=== PATIENT | female | born 1965 | race Caucasian/White ===

== ENCOUNTER → 2018-06-28 13:23 | Outpatient (CLI) | payer OTHER, SELFPAY ==
--- NOTE | 2018-06-28 13:31 | CI_ITS ---
Cerebrovascular Exam Indications: 433.10 Occlusion/stenosis of carotid artery without cerebral infarction. 785.9 Bruit. IMPRESSIONS 1. The bilateral vertebral arteries are patent with normal antegrade flow. 2. Study suggests less than 20% stenosis involving the right internal carotid artery and the left internal carotid artery. Carotid duplex study. Complete study and Doppler flow study including spectral analysis, color and pan scale imaging. Height: Height: 172.7cm. Height: 68in. Weight: Weight: 96.6kg. Weight: 212.6lb. Body mass index: BMI: 32.4kg/m^2. Body surface area: BSA: 2.18m^2. Location: Vascular laboratory. Patient status: Outpatient. Tables: Arterial flow: + +--------+---------+ Location V sys V ed + +--------+---------+ Right CCA - proximal 121cm/s 31.4cm/s + +--------+---------+ Right CCA - distal 84.9cm/s -21.2cm/s + +--------+---------+ Right ECA 115cm/s --------- + +--------+---------+ Right ICA - proximal 97.4cm/s 28.3cm/s + +--------+---------+ Right ICA - mid 85.6cm/s 25.9cm/s + +--------+---------+ Right ICA - distal 84.9cm/s 31.4cm/s + +--------+---------+ Right vertebral 57.4cm/s --------- + +--------+---------+ Left CCA - proximal 190cm/s 37.7cm/s + +--------+---------+ Left CCA - distal 91.1cm/s 32.2cm/s + +--------+---------+ Left ECA 58.9cm/s --------- + +--------+---------+ Left ICA - proximal 91.9cm/s 35.4cm/s + +--------+---------+ Left ICA - mid 73.9cm/s 22.8cm/s + +--------+---------+ Left ICA - distal 91.1cm/s 36.1cm/s + +--------+---------+ Left vertebral 49.5cm/s --------- + +--------+---------+ Velocity ratios: + + + + + Right, V sys Left, V sys Left, V ed + + + + + Max ICA/dist CCA 1.15 1.01 1.12 + + + + + (Report amended ) Electronically signed by: Marito Torres [id number]
== END ==
PROVIDERS: Family Provider Family Medicine; PCP Nurse Practitioner Family; Visit Provider Nurse Practitioner Family
DX: I65.23 Occlusion and stenosis of bilateral carotid arteries (principal)
CPT/HCPCS: 93880

== ENCOUNTER → 2018-10-28 16:44 | Outpatient (CLI) | payer BC, OTHER, SELFPAY ==
--- NOTE | 2018-10-28 16:49 | MM_ITS ---
MM Dig screening mamm BI w/CAD CAD Screening COMPARISON: Digital mammograms with CAD 02/02/2017 and 08/16/2017 INDICATION: There is no personal or family history of breast cancer TECHNIQUE: Standard CC and MLO images were obtained. R2 CAD reviewed. FINDINGS: Moderate scattered fiber glandular densities are seen in the central portions of both breast. There are mole markers right breast. There is a biopsy clip in each breast there is a stable small nodular density central portion right breast adjacent to the biopsy clip likely a small fibroadenoma. There is no suspicious lesion and there are no suspicious microcalcifications.. IMPRESSION: Stable exam with no suspicious lesion seen BI-RADS Category: 2 Benign Finding(s) RECOMMENDED FOLLOW-UP: 1YR - 1 YEAR FOLLOW-UP (A letter has been sent to the patient regarding results of the study.)
--- NOTE | 2018-10-28 16:54 | XR_ITS ---
XR foot LT min 3V HISTORY: ITS.REASON: PAIN IN LEFT FOOT ORDERING PHYSICIAN: Chela Ferrell PATIENT AGE: 52 years COMPARISON: None FINDINGS: No fracture or dislocation. No lytic or blastic change. There is normal mineralization.. Minimal hypertrophic changes are present dorsally at the navicular, cuneiforms and proximal metatarsals. Minimal osteoarthritic changes are present at the first metatarsophalangeal joint. There is good alignment. IMPRESSION: Mild degenerative change, no acute finding
== END ==
PROVIDERS: PCP Nurse Practitioner Family; Referring Provider Nurse Practitioner Family; Visit Provider Nurse Practitioner Family
DX: Z12.31 Encounter for screening mammogram for malignant neoplasm of breast (principal); M79.672 Pain in left foot
CPT/HCPCS: 73630; 77067

== ENCOUNTER → 2020-04-18 10:51 | Outpatient (CLI) | payer OTHER, SELFPAY ==
--- NOTE | 2020-04-18 10:53 | MM_ITS ---
PROCEDURE: MM DIG SCREENING MAMM BI W/CAD Digital Breast Tomosynthesis Included CLINICAL INDICATION: SCREENING There is no personal or family history of breast cancer. There have been previous biopsies on each breast for benign disease. COMPARISON: MG DMDBAV DIG MAMM-DX GABBY W/AVWS W/CAD from 02/02/2017 MG DMDBAV DIG MAMM-DX GABBY W/AVWS W/CAD from 08/16/2017 MG SCBI MM Dig screening mamm BI w/CAD from 10/28/2018 TECHNIQUE: Standard CC and MLO images and 3D Tomosynthesis was obtained. R2 CAD reviewed. FINDINGS: Mild to moderate scattered fibroglandular densities are seen in the central portions of both breasts. There is a biopsy clip in each breast. There are 3 mole markers right breast and a single mole marker left breast. There is a stable benign-appearing nodular density lower outer quadrant left breast. There is a stable tiny nodular density deep within the right breast medially. There is no new or suspicious lesion and there are no suspicious microcalcifications. IMPRESSION: Fibrofatty parenchyma with no suspicious lesions seen BI-RAD Category: 2 Benign Finding(s) FOLLOW-UP: 1YR 1 Year Follow-up (A letter has been sent to the patient regarding results of the study.) Dictated Dr. Mirza Quintero MD 04/26/2020 07:59 Dr. Mirza Davies MD in [place] 04/26/2020 07:59
== END ==
PROVIDERS: PCP Nurse Practitioner Family; Visit Provider Nurse Practitioner Family
DX: Z12.31 Encounter for screening mammogram for malignant neoplasm of breast (principal)
CPT/HCPCS: 77063; 77067

== ENCOUNTER → 2020-06-12 10:09 | Outpatient (CLI) | payer OTHER, SELFPAY ==
[2020-06-12 11:52] LABS: Coronavirus 19 IgG Antibody Negative (Negative); Coronavirus 19 IgM Antibody Negative (Negative)
== END ==
PROVIDERS: Visit Provider Surgery
DX: Z01.89 Encounter for other specified special examinations (principal)
CPT/HCPCS: 36415; 86328

== ENCOUNTER 2020-06-13 07:23 | Day surgery (SDC) | payer OTHER, SELFPAY ==
[2020-06-11 10:14] VITALS: BMI 33.4
[2020-06-13 07:37] VITALS: BP 146/81; PULSE 55; RESP 18; TEMP 36.3; O2SAT 99
--- NOTE | 2020-06-13 07:45 | P.PN_ITS ---
[facility] Anesthesia Checklist - Patient Identification Patient Identification: Arm Band, Verbal (Name & ) - Structural Data Admitted From: Home Planned Operative Procedure/s: colon Consent for Planned Operative Procedure(s) Verified: Yes Verified Documents: History and Physical - NPO Status Verified Time NPO: 00:00 - Chart Verification Results Verified: CBC, BMP - Additional verifications Patient : No Anesthesia Reactions: No Hx Blood Transfusions: No Blood Transfusion Reaction: No Cephalosporin Allergy: No Previous Colonoscopy: Yes - Cardiovascular Assessment Heart Sounds: S1 & S2 Pulse Strength: Baseline Pulse Rhythm: Regular Peripheral Edema: No - Airway Assessment C-Spine Mobility Assessed: Yes TMJ Mobility Assessed: Yes Dentition: Good Dentition - Neurological Assessment Level of Consciousness: Awake, Alert, Appropriate Hx Seizures: No Numbness or tingling in extremities: No - Anesthesia Plan Anesthesia Risk discussed: Yes Anesthesia Plan: Verified ASA Class: II Anesthesia Type: MAC [facility] History I have reviewed the patient's past medical history: Yes Medical History: Reports:: Heart Murmur, Hyperlipidemia, Hypertension, Pulmonary Embolism Denies:: Cancer, Diabetes Mellitus Type 1, Diabetes Mellitus Type 2, MRSA, Seizures *Have you ever received a pneumonia vaccine?: No *Have you received a flu vaccine this season?: No Other Medical History: Reports: Arthritis Anesthesia experience/problems:: none Other Surgeries: Yes: Colonoscopy, , Tubal Ligation Amputation: No Fractures: No - *Social History Last grade of school completed: High school graduate Smoking Status: Never smoker Alcohol Intake: never Substance Use Type: denies use *Occupational Status:: other *Travel in the last 8 weeks: None Family Hx:: Stroke, Heart Attack, Hypertension, Diabetes
[2020-06-13 07:55] VITALS: O2SAT 99
[2020-06-13 08:27] VITALS: BP 99/54; PULSE 51; RESP 16; TEMP 36.2; O2SAT 98
--- NOTE | 2020-06-13 08:28 | HMH.SCOPE ---
- Procedure: Date: 06/13/20 Patient Date of :: 1965 Procedure Performed:: Colonoscopy with biopsy Indications:: Screening History of polyps Melanosis Performing Provider:: Vernon Castorena MD Referring Provider:: . Sedation:: Monitored anesthesia care Procedure:: After informed consent was obtained the patient was taken to the endoscopy suite. Sedation ensued after the patient was transferred to the left lateral decubitus position. Pulse, blood pressure, and oxygen saturation were monitored throughout the procedure. Digital rectal exam revealed no significant abnormality. The colonoscope was placed in position. The entire colon was evaluated. The colonoscope was carefully removed and the patient was transferred to recovery in stable condition. Please see findings and specimens below for detail. Findings:: Small hemorrhoidal tags Bowel preparation moderate Scattered melanosis Focal colitis at 45 cm Specimens:: Biopsy of focal colitis at 45 cm Recommendations:: Timing of repeat colonoscopy is pending pathology but will likely be around 3 years secondary to persistence of moderate bowel preparation Complications:: No immediate Estimated blood obtained (mL): 1
[2020-06-13 08:37] VITALS: BP 119/79; PULSE 56; RESP 16; TEMP 36.2; O2SAT 100
[2020-06-13 08:47] VITALS: BP 118/73; PULSE 49; RESP 18; TEMP 36.2; O2SAT 100
[2020-06-13 08:58] VITALS: BP 125/76; PULSE 52; RESP 18; TEMP 36.2; O2SAT 100
== END 2020-06-13 08:58 | disposition home or self-care (01) ==
LOC: OUTP 07:24
PROVIDERS: PCP Nurse Practitioner Family; Visit Provider Surgery
PROC: 0DJD8ZZ Inspection of Lower Intestinal Tract, Via Natural or Artificial Opening Endoscopic (ICD-10-PCS; CPT 45380; principal; 2020-06-13 08:30)
DX: Z12.11 Encounter for screening for malignant neoplasm of colon (principal); K63.89 Other specified diseases of intestine; K64.9 Unspecified hemorrhoids; K52.9 Noninfective gastroenteritis and colitis, unspecified; Z86.010 Personal history of colon polyps; E78.5 Hyperlipidemia, unspecified; I10 Essential (primary) hypertension; I26.99 Other pulmonary embolism without acute cor pulmonale; R01.1 Cardiac murmur, unspecified; M19.90 Unspecified osteoarthritis, unspecified site; Z88.0 Allergy status to penicillin; Z79.899 Other long term (current) drug therapy
CPT/HCPCS: 45380

== ENCOUNTER → 2021-01-31 12:05 | Outpatient (CLI) | payer OTHER, SELFPAY ==
--- NOTE | 2021-01-31 12:10 | XR_ITS ---
PROCEDURE: XR CERVICAL SPINE 3V CLINICAL INDICATION: CERVICALGIA COMPARISON: No exams were available for comparison FINDINGS: No acute fractures or listhesis. The C1-2 alignment is unremarkable. Vertebral body heights and alignment are maintained. The C7-T1 is not visualized on the current study. Multilevel degenerative changes with the anterior osteophyte formation and facet joint arthropathy. Minor disc height loss is noted. Prevertebral soft tissues and the visualized lung apices are clear. IMPRESSION: C7-T1 is not visualized, limiting evaluation. Degenerative changes of the cervical spine. No acute fractures or listhesis. Dictated by: Valentina May 01/31/2021 12:29 Valentina May in [place] 01/31/2021 12:29
== END ==
PROVIDERS: PCP Nurse Practitioner Family; Visit Provider Nurse Practitioner Family
DX: M54.2 Cervicalgia (principal)
CPT/HCPCS: 72040

== ENCOUNTER 2021-03-11 13:00 | Outpatient (RCR) | payer OTHER, SELFPAY | END 2021-03-31 15:00 | disposition home or self-care (01) | LOC: PT.CARL 13:00 | PROVIDERS: Visit Provider Nurse Practitioner Family | DX: M54.2 Cervicalgia (principal) | CPT/HCPCS: 97012; 97110; 97140; 97163 ==

== ENCOUNTER → 2021-03-19 09:37 | Outpatient (CLI) | payer OTHER, SELFPAY ==
--- NOTE | 2021-03-19 09:40 | MR_ITS ---
PROCEDURE: MR CERVICAL SPINE WO CON CLINICAL INDICATION: CERVICAL DISC DISORDER Rt arm numbness and tingling. Symptoms u2tcutiz. Headache. COMPARISON: CR XR CERVICAL SPINE 3V from 01/31/2021 TECHNIQUE: Standard multiplanar multiecho sequences are performed without contrast. 3-D MIP and myelographic images are also rendered and reviewed FINDINGS: There is normal alignment. The craniocervical junction has an unremarkable appearance. There is straightening of the cervical lordosis. C2-C3: Unremarkable. C3-C4: Unremarkable. C4-C5: Mild degenerative disc disease with minimal bulging disc. Mild right-sided foraminal narrowing from uncovertebral hypertrophy. There is canal stenosis at this level measuring 8 mm with minimal contour deformity of the anterior aspect of the cord. Prominent anterior osteophytes. C5-C6: Degenerative disc disease with mild bulging disc and endplate osteophytes resulting in a small ridge like area anteriorly with canal stenosis of 8 mm. C6-C7: Degenerative disc disease with endplate osteophytes with bulging disc slightly eccentric toward the right with canal stenosis of 7 mm, right lateral recess narrowing, and right foraminal narrowing. There is mild compression upon the anterior and right aspect of the cord. C7-T1: Unremarkable. No extruded herniated discs apparent. IMPRESSION: Multilevel cervical spondylosis with degenerative disc disease, bulging disc, and endplate osteophytes resulting in canal stenosis, lateral recess narrowing, and foraminal narrowing. Please see above for detailed description at each level. Dictated by: Marito Torres MD 03/20/2021 08:38 Marito Torres MD in [place] 03/20/2021 08:38
== END ==
PROVIDERS: PCP Nurse Practitioner Family; Visit Provider Nurse Practitioner Family
DX: M50.10 Cervical disc disorder with radiculopathy, unspecified cervical region (principal)
CPT/HCPCS: 72141; 76376

== ENCOUNTER → 2021-04-10 17:52 | Outpatient (CLI) | payer OTHER, SELFPAY ==
--- NOTE | 2021-04-10 17:58 | XR_ITS ---
PROCEDURE: XR CHEST 2V CLINICAL HISTORY: COUGH COMPARISON: CR CXR CHEST(2 VIEWS-NOT PORTABLE) from 01/18/2017 CT CTAC CTA-CHEST from 01/18/2017 FINDINGS: The cardiomediastinal silhouette and pulmonary vascularity are within normal limits. The lungs are clear without infiltrates, suspicious nodules, or pleural effusions. No acute bony abnormalities. IMPRESSION: No acute findings. Dictated by: Valentina Mya 04/11/2021 08:34 Valentina May in [place] 04/11/2021 08:34
== END ==
PROVIDERS: PCP Nurse Practitioner Family; Visit Provider Nurse Practitioner Family
DX: R05 Cough (principal)
CPT/HCPCS: 71046

== ENCOUNTER → 2021-04-21 09:45 | Outpatient (CLI) | payer OTHER, SELFPAY ==
--- NOTE | 2021-04-21 09:47 | MM_ITS ---
PROCEDURE INFORMATION: Exam: MG Screening 3D Mammography Exam date and time: 04/21/2021 9:47 AM Age: 55 years old Clinical indication: Encounter for screening mammogram for malignant neoplasm of breast TECHNIQUE: Imaging protocol: Screening tomosynthesis and 2D mammography including computer-aided detection (CAD) when performed. COMPARISON: 1. MG MM DIG SCREENING MAMM BI W/CAD 04/18/2020 11:01 AM 2. MG SCBI MM Dig screening mamm BI w/CAD 10/28/2018 4:56 PM FINDINGS: MAMMOGRAPHY: Breast composition: The breast tissue is composed of scattered areas of fibroglandular density. Mass: None. Architectural distortion: None. Calcifications: No suspicious calcifications. Asymmetric density: None. Skin thickening: None. Axillary adenopathy: None. IMPRESSION: No mammographic evidence of malignancy. Annual screening is recommended unless otherwise clinically indicated. ASSESSMENT: BI-RADS Category 1: Negative
== END ==
PROVIDERS: PCP Nurse Practitioner Family; Visit Provider Nurse Practitioner Family
DX: Z12.31 Encounter for screening mammogram for malignant neoplasm of breast (principal)
CPT/HCPCS: 77063; 77067

== ENCOUNTER → 2021-05-07 15:02 | Outpatient (CLI) | payer OTHER, SELFPAY ==
--- NOTE | 2021-05-07 15:11 | XR_ITS ---
PROCEDURE: XR KNEE LT 3V CLINICAL INDICATION: LT KNEE PAIN COMPARISON: CR KNEE3R KNEE-3 VIEWS-RT from 01/01/2016 CR KNEE3L KNEE-3 VIEWS-LT from 01/01/2016 FINDINGS: There are moderate to severe osteoarthritic changes of the medial compartment and patellofemoral joint. Prominent osteophytes are present medially and at the patellofemoral joint and to lesser degree laterally. There is mild flattening of the medial femoral condyle and lateral tibial plateau. Knee joint effusion is suspected. IMPRESSION: Moderate to severe osteoarthritis with knee joint effusion. The osteoarthritis has progressed compared to the previous exam Dictated by: Marito Torres MD 05/07/2021 15:29 Marito Torres MD in [place] 05/07/2021 15:29
== END ==
PROVIDERS: PCP Nurse Practitioner Family; Visit Provider Nurse Practitioner Family
DX: M25.562 Pain in left knee (principal)
CPT/HCPCS: 73562

== ENCOUNTER 2022-01-29 13:00 | Outpatient (RCR) | payer OTHER, SELFPAY | END 2022-03-11 16:43 | disposition home or self-care (01) | LOC: PT.CARL 13:00 | PROVIDERS: PCP Nurse Practitioner Family; Visit Provider Orthopaedic Surgery Adult Reconstructive Orthopaedic Surgery | DX: M17.12 Unilateral primary osteoarthritis, left knee (principal); Z96.652 Presence of left artificial knee joint | CPT/HCPCS: 97010; 97014; 97033; 97110; 97116; 97140; 97163; 97164; 97530; G0283 ==

== ENCOUNTER → 2022-05-04 16:45 | Outpatient (CLI) | payer OTHER, SELFPAY ==
--- NOTE | 2022-05-04 16:49 | MM_ITS ---
PROCEDURE INFORMATION: Exam: MG Bilateral Screening 3D Mammography Exam date and time: 05/04/2022 4:41 PM Age: 56 years old Clinical indication: Screening mammogram TECHNIQUE: Imaging protocol: Bilateral Screening tomosynthesis and 2D mammography including computer-aided detection (CAD) when performed. COMPARISON: 1. MG MM DIG SCREENING MAMM BI W/CAD 04/21/2021 10:01 AM 2. MG MM DIG SCREENING MAMM BI W/CAD 04/18/2020 11:01 AM 3. MG SCBI MM Dig screening mamm BI w/CAD 10/28/2018 4:56 PM 4. MG DMDBAV DIG MAMM-DX GABBY W/AVWS W/CAD 08/16/2017 1:10 PM FINDINGS: MAMMOGRAPHY: Breast composition: There are scattered areas of fibroglandular density. Mass: Stable benign-appearing subcentimeter nodules are present in the bilateral breasts. No new or morphologically suspicious nodule has developed to suggest malignancy. Architectural distortion: No new or suspicious architectural distortion. Calcifications: No new or suspicious calcifications are present Asymmetric density: No new or suspicious asymmetric density is present Skin thickening: None. Axillary adenopathy: None. IMPRESSION: No mammographic evidence of malignancy. Recommend annual screening mammography unless otherwise clinically indicated. ASSESSMENT: BI-RADS category 2: Benign
== END ==
PROVIDERS: PCP Nurse Practitioner Family; Visit Provider Nurse Practitioner Family
DX: Z12.31 Encounter for screening mammogram for malignant neoplasm of breast (principal)
CPT/HCPCS: 77063; 77067

== ENCOUNTER 2023-02-23 09:00 | Outpatient (RCR) | payer OTHER, SELFPAY | END 2023-02-23 14:22 | disposition home or self-care (01) | LOC: PT 09:00 | PROVIDERS: PCP Nurse Practitioner Family; Visit Provider Nurse Practitioner Family | DX: M54.31 Sciatica, right side (principal); M54.50 Low back pain, unspecified | CPT/HCPCS: 97010; 97012; 97014; 97110; 97140; 97163; G0283 ==

== ENCOUNTER 2024-05-03 07:50 | Outpatient (CLI) | payer OTHER, SELFPAY ==
--- NOTE | 2024-05-03 07:52 | US_ITS ---
PROCEDURE: US TRANSVAGINAL CLINICAL INDICATION: PELVIC PAIN COMPARISON: No exams were available for comparison FINDINGS: Transvaginal sonographic images of the pelvis were obtained. UTERUS: 7.5 cm x 4.2cmx 2.7 cm anteverted with a combined endometrial thickness of 4.3mm. There appears to be a polyp within the endometrial cavity that measures 6.8 mm. There is fluid within the endometrium. There is an anterior fibroid measuring 0.7 cm x 0.5 cm x 0.5 cm. LEFT OVARY: 1.4cmx1.4cmx0.7cm with a volume of 0.7ml. RIGHT OVARY: 1.5 cmx 0.9 cmx 0.8 cm with a volume of 0.5ml. Both ovaries are seen and appear normal. Doppler flow to both ovaries are seen. There is no fluid in the cul-de-sac. IMPRESSION: 1. Anteverted uterus normal in shape and size. The endometrium is thin. 2. There appears to be a 6.8 mm polyp within the endometrial cavity. 3. There is fluid within the endometrial cavity. 4. Both ovaries are seen and appear atrophic. 5. No fluid in the cul-de-sac 6. Suggest a gynecology consult for polypectomy. Dictated by: Rudy Mata MD 05/03/2024 13:44 Rudy Mata MD in [place] 05/03/2024 13:44
== END 2024-05-03 23:59 | disposition home or self-care (01) ==
LOC: RAD 07:51
PROVIDERS: PCP Nurse Practitioner Family; Visit Provider Nurse Practitioner Family
DX: R10.2 Pelvic and perineal pain (principal)
CPT/HCPCS: 76830

== ENCOUNTER 2024-10-28 10:49 | Emergency (ER) | payer OTHER, SELFPAY ==
[2024-10-28 11:46] VITALS: BP 120/65; PULSE 87; RESP 18; TEMP 37; O2SAT 98; BMI 35.4
[2024-10-28 11:50] LABS: UTC Influenza A Antigen Negative (Negative); UTC Influenza B Antigen Negative (Negative)
--- NOTE | 2024-10-28 11:59 | ED_ITS ---
Discharge Plan Disposition Patient Disposition: Home, Self-Care Condition: Good Prescriptions Prescriptions: No Action citalopram 40 mg tablet 40 mg PO DAILY lisinopril-hydrochlorothiazide 10-12.5 mg tablet 1 tab PO DAILY fluticasone propionate 50 mcg/actuation spray,suspension intranasal fexofenadine 180 mg tablet PO rosuvastatin 5 mg tablet PO Patient Comments: TAKE ONE TABLET BY MOUTH ONCE DAILY Referrals Follow up/Referrals: Chela Ferrell [Primary Care Provider] - See instructions Activity Restrictions/Add. Instructions Additional Instructions/Restrictions: No sign of a bacterial infection. Likely viral. Viruses can take 7-14 days to run their course. Nasal saline and bulb syringe or nose Sandi to remove nasal drainage to help with nasal congestion. Hard to eat, drink, sleep with nasal congestion so important to keep this cleaned out. Monitor temp. Tylenol or Motrin as needed for pain or fever Encourage fluids, water, Gatorade, Powerade, Pedialyte if infant/toddler/child Warm salt water gargles Warm fluids Sore throat lozenges Sleep elevated Humidifier/vaporizer Follow-up immediately for new or worsening symptoms or no noticeable improvement over the next 48-72 hours. Clinical Impressions Clinical Impression: Upper respiratory infection, viral Instructions Patient Instructions: DI for Viral Upper Respiratory Infection -- Adult Print Language Print Language: Wolof Discharge ED Provider: Aicha ([facility] HPI General Stated complaint: flu ex., chills, cough, poss fever, headaches Mode of Arrival: Ambulatory Source of Information: Patient Time Seen by Provider: 10/28/24 11:52 Description of Symptoms (Recalled from Triage Doc. by RN): FLU S/S , RAMIREZ, COUGH, CHILLS HEENT Symptoms (Recalled from RN notes): Yes Resp Symptoms (Recalled from RN notes): Yes Skin Symptoms (Recalled from RN notes): No MS Symptoms (Recalled from RN notes): No Functional Status (Recalled from RN notes): WNL History of Present Illness Provider Complaint: 58-year-old female presents for complaints of headache, chills, cough, body aches, nasal congestion, and sinus pressure that started yesterday. Patient states she just finished a round of antibiotics for double ear infection. Related Data Home Medications ?Medication ?Instructions ?Recorded ?Confirmed citalopram 40 mg tablet 40 mg PO DAILY dression 05/22/20 06/27/24 lisinopril 10 1 tab PO DAILY bl pressure 05/22/20 06/27/24 mg-hydrochlorothiazide 12.5 mg tablet fexofenadine 180 mg tablet mg PO 06/27/24 06/27/24 fluticasone propionate 50 intranasal 06/27/24 06/27/24 mcg/actuation nasal spray,suspension rosuvastatin 5 mg tablet mg PO 06/27/24 06/27/24 Allergies Allergy/AdvReac Type Severity Reaction Status Date / Time Penicillins (PENICILLINS) Allergy Unknown Verified 06/27/24 13:00 Worker's Comp Is this a Worker's Comp case?: No [facility] Disclaimer: The information contained in this section may have been updated after the patient was seen, as this information can be updated by other users. Medical History , [employer]) Intermittent right lower quadrant abdominal pain Endometrial polyp Surgical History , [employer]GER) Status post section Total knee replacement status Social History , [employer] MANAGER) Smoking Status: Never smoker alcohol intake: never substance use type: denies use current occupational status: other Travel in the last 8 weeks: None caffeine: Yes Have you lived/traveled outside [place] in past 30 days?: No Contact w/someone who lives/traveled outside US past 30 days?: No Exposure to someone with infectious disease in past 14 days?: Yes Do you have a fever (greater than 100.4 F or 38 C)?: No Have you tested positive for COVID-19: No Exposed to someone with COVID-19 in past 14 days?: No Do you have a sore throat?: No Do you have a cough?: Yes Do you have any weakness?: No Do you have any diarrhea?: No Are you experiencing any unusual bleeding?: No Do you have any muscle aches/pain?: No Do you have any abdominal pain?: No Are you experiencing loss of taste or smell?: No ROS Obtained: Yes Systems reviewed as appropriate & no additional complaints except as documented Constitutional Constitutional: Reports system reviewed and no additional complaints, except as documented ENT Ears, Nose, Mouth, and Throat: Reports system reviewed and no additional complaints, except as documented, Reports as per HPI, Reports nasal discharge, Reports nose pain, Reports post nasal drip, Reports sinus pain, Reports sinus pressure and Reports sore throat Respiratory Respiratory: Reports system reviewed and no additional complaints, except as documented and Reports cough Physical Exam General General appearance: alert and in no apparent distress ENT ENT exam: Present normal exam, normal oropharynx, mucous membranes moist and TM's normal bilaterally Respiratory Respiratory exam: Present normal lung sounds bilaterally Cardiovascular Cardiovascular exam: Present regular rate and normal rhythm Neurological Exam Neurological exam: Present alert and oriented X3 Skin Skin exam: Present warm and intact Medical Decision Making Medical Records Medical records reviewed: Yes I reviewed the patient's medical records. Screening: Per USPSTF and CDC recommendations, given the prevalence of disease in our region, it is our hospital?s policy to screen for HIV and viral Hepatitis for all patients aged 18 and over and those with ongoing risk factors. Isaias Inquiry Pt receiving controlled substance: No Isaias was queried for this patient: No Vital Signs: 10/28/24 11:46 Temperature 98.6 F Temperature Source Oral Pulse Rate [Left Radial] 87 Respiratory Rate 18 Blood Pressure [Left Arm] 120/65 Blood Pressure Mean [Left Arm] 83 02 Sat by Pulse Oximetry 98 Lab Data Lab results reviewed: Yes I reviewed the patient's lab results. Lab Results 10/28/24 11:49: Influenza Type A Ag Negative, Influenza Type B Ag Negative
[2024-10-28 12:45] VITALS: BP 120/65; PULSE 87; RESP 18; TEMP 37
[2024-10-28 12:46] LABS: Coronavirus 19, PCR Not Detected (NotDetected); Influenza B, PCR Not Detected (NotDetected)
[2024-10-28 14:20] LABS: Influenza A, PCR Detected (NotDetected)
== END 2024-10-28 12:45 | disposition home or self-care (01) ==
PROVIDERS: Emergency Provider Nurse Practitioner Family; PCP Nurse Practitioner Family
DX: J06.9 Acute upper respiratory infection, unspecified (principal)
CPT/HCPCS: 87636; 87804; 99213; G0381

== ENCOUNTER 2024-12-20 10:19 | Outpatient (CLI) | payer OTHER, SELFPAY ==
--- NOTE | 2024-12-20 10:23 | US_ITS ---
FINAL REPORT TECHNIQUE: Multiple transverse and longitudinal images CLINICAL HISTORY: RUQ PAIN COMPARISON: None FINDINGS: The gallbladder shows no wall thickening, distention or stone disease. No biliary ductal dilatation is appreciated. No fluid collections are seen. Limited portions of the right liver are unremarkable. Limited portions of the right kidney are unremarkable. IMPRESSION: 1. No evidence of cholelithiasis 2. No evidence of biliary obstruction Reviewed, Interpreted and Dictated by Maki Hanson MD Transcribed by Trinidad Morales Authenticated and [facility]
== END 2024-12-20 23:59 | disposition home or self-care (01) ==
LOC: RAD 10:20
PROVIDERS: PCP Nurse Practitioner Family; Visit Provider Nurse Practitioner Family
DX: R10.11 Right upper quadrant pain (principal)
CPT/HCPCS: 76705

== ENCOUNTER 2025-01-02 13:17 | Outpatient (CLI) | payer OTHER, SELFPAY ==
--- NOTE | 2025-01-02 13:22 | CT_ITS ---
FINAL REPORT TECHNIQUE: Thin section axial images were obtained from the thoracic inlet through the upper abdomen after intravenous contrast injection. Reconstruction images were obtained from the axial data. Exam was performed using dose reduction technique. This study was performed with techniques to keep radiation doses as low as reasonably achievable (ALARA). Individualized dose reduction techniques using automated exposure control or adjustment of mA and/or kV according to the patient's size were employed. CLINICAL HISTORY: chest pain COMPARISON: None FINDINGS: There is no mediastinal, hilar, or axillary lymphadenopathy. There is no pleural or pericardial effusion. There is evidence of prior granulomatous disease. There is a subpleural 4 mm nodule in the right upper lobe, best seen on image #31 of series 2. Linear atelectasis is present in the lung bases. Limited evaluation of the upper abdomen is without acute abnormality. No acute osseous abnormality. IMPRESSION: Subpleural 4 mm nodule in the right upper lobe as described. Recommend follow-up after risk stratification according to Fleischner criteria. Reviewed, Interpreted and Dictated by Cinthia Marshall MD Transcribed by Frances Mauricio Authenticated and [facility]
[2025-01-02 14:17] LABS: Blood Urea Nitrogen 22 mg/dl (7-17); Estimated Glomerular Filt Rate 51 ml/min (>60); GFR (African American) 61 ML/MIN (>60)
[2025-01-02] MEDS: IOPAMIDOL-370 (76%);100ML BOTTLE 75 ML IV (14:35)
[2025-01-02] MEDS: SODIUM CHLORIDE 0.9% 10ML SYR (RAD ONLY) 10 ML IV (14:36)
== END 2025-01-02 23:59 | disposition home or self-care (01) ==
LOC: RAD 13:18
PROVIDERS: PCP Nurse Practitioner Family; Visit Provider Nurse Practitioner Family
DX: R07.89 Other chest pain (principal)
CPT/HCPCS: 36415; 71260; 82565; 84520; Q9967

== ENCOUNTER 2025-09-04 08:28 | Day surgery (SDC) | payer OTHER, SELFPAY ==
[2025-09-04] VITALS (14 sets, daily range): BP systolic 112–159; BP diastolic 54–83; PULSE 48–64; RESP 18–20; TEMP 36.1; O2SAT 94–99; BMI 34.7
--- NOTE | 2025-09-04 07:12 | IR_ITS ---
APPROVED REPORT Patient Location: Outpatient PROCEDURES Left heart catheterization Left ventriculogram Selective coronary angiogram Drug-eluting stent deployment to the proximal LAD Intravascular ultrasound to the LAD INDICATION Unstable angina, Coronary artery disease, Complex intervention requiring IVUS guidance, Informed consent was obtained prior to the procedure. COMPLICATIONS NONE Estimated Blood Loss: LESS THAN 10 ML TECHNIQUE One percent lidocaine used to anesthetize the right anterior aspect of the wrist. The right radial artery was accessed via the Seldinger technique. A 6 [place] sheath was placed in the right radial artery. 2.5 mg of Verapamil, 800 mcg of nitroglycerin, 1mg Lidocaine and 5000 U Heparin were given through the arterial sheath. The JL3 catheter was also used to perform left heart catheterization, left ventriculogram and selective coronary angiogram. At the end the diagnostic angiogram therapeutic Was administered given a therapeutic ACT and the guide catheter was placed in left main artery followed by Choice PT extra-support wire placed in the distal LAD. A 4 mm x 15 mm [place] frontier stent was deployed at 14 stalin reducing the stenosis. A 4 mm x 8 mm noncompliant balloon was deployed initially at 18 stalin and then at 20 stalin in the mid and proximal portion of the LAD stent. Intravascular ultrasound probe was then advanced which demonstrated excellent stent apposition and expansion with proximal and distal transition being excellent. MERCY-3 flow was present before and after the procedure. At the end the procedure the apparatus was removed the sheath was removed good hemostasis was achieved using TR banding patient was transferred to the postop boarding in stable condition ANGIOGRAPHIC RESULTS The left main artery Normal The left anterior descending artery Has a proximal 90% stenosis immediately between the large first diagonal artery and first septal personal insurance advisor. The remaining vessel is widely patent The circumflex artery Normal The right coronary artery Dominant normal The APARICIO ventriculogram reveals Normal 65% The left ventricular end-diastolic pressure 25 mmHg IMPRESSION Severe to critical proximal LAD disease as described above Successful stenting of the proximal to mid LAD critical disease reduced to 0% with 1 drug-eluting stent Successful intravascular ultrasound to the LAD Normal ejection fraction Elevated LVEDP PLAN 1. Effient and aspirin 2. LDL less than 55 to be achieved with high intensity statin 3. Avoidance of tobacco products 4. Risk factor modification 5. Cardiac rehabilitation 6. Treatment of elevated LVEDP 7. Recommend sleep study Electronically signed by : Josh Casiano MD 09/04/2025 11:24:46
[2025-09-04 09:03] LABS: Hematocrit 35.5 % (37.0-47.0); Hemoglobin 11.7 g/dL (12.2-16.2); Immature Granulocytes % 0.3 %; Mean Corpuscular HGB Conc 33.0 g/dL (31.8-35.4); Mean Corpuscular Hemoglobin 27.5 pg (27.0-31.2); Mean Corpuscular Volume 83.5 fl (81-99); Nucleated Red Blood Cells % 0 %; Platelet Count 196 K/mm3 (142-424); Red Blood Count 4.25 M/mm3 (4.20-5.40); Red Cell Distribution Width-SD 34.8 fL; White Blood Count 3.6 K/mm3 (4.8-10.8)
[2025-09-04 09:37] LABS: Anion Gap 8.5 mEq/L (5-15); Blood Urea Nitrogen 19 mg/dl (7-17); Calcium 8.6 mg/dl (8.4-10.2); Carbon Dioxide 28 mmol/L (22.0-30.0); Chloride 104 mmol/L (98-107); Creatinine Clearance Estimated 79 mL/min (50-200); Creatinine,Serum 1.20 mg/dl (0.52-1.04); Estimated Glomerular Filt Rate 46 ml/min (>60); GFR (African American) 55 ML/MIN (>60); Glucose 99 mg/dl (74-100); Potassium 3.5 mmoL/L (3.5-5.1); Sodium 137 mmol/L (136-145)
[2025-09-04] MEDS: NITROGLYCERIN 800MCG/8ML SYR (CATH LAB) 800 MCG IA (10:17)
[2025-09-04] MEDS: LIDOCAINE 1% 10ML MDV 10 ML IJ (10:17)
[2025-09-04] MEDS: 0.9 % SODIUM CHLORIDE 500 ML 25 ML IV (10:17)
[2025-09-04] MEDS: HEPARIN 1,000 UNITS/500ML NS (CATH LAB) 3000 UNIT IV (10:18)
[2025-09-04] MEDS: HEPARIN 1,000 UNITS/ML 10ML VIAL (CATH LAB) 5000 UNIT IV ×2 (10:18→11:06)
[2025-09-04] MEDS: VERAPAMIL 2.5MG/ML 2ML VIAL 2.5 MG IV (10:18)
[2025-09-04] MEDS: MIDAZOLAM HCL 1MG/ML 5ML VIAL 1 MG IV (11:16)
[2025-09-04] MEDS: FENTANYL 100MCG/2ML VIAL 50 MCG IV (11:16)
[2025-09-04] MEDS: PRASUGREL 10MG TAB 60 MG PO (11:28)
[2025-09-04 13:33] LABS: CATHL Activated Clotting Time 399 SEC (74-125)
--- NOTE | 2025-09-04 14:55 | SUR.PHASEII ---
No beta neville per MD for HR being to low
== END 2025-09-04 15:13 | disposition home or self-care (01) ==
PROVIDERS: PCP Nurse Practitioner Family; Visit Provider Internal Medicine
PROC: 4A023N7 Measurement of Cardiac Sampling and Pressure, Left Heart, Percutaneous Approach (ICD-10-PCS; CPT 93452; principal; 2025-09-04 08:45)
DX: I25.118 Atherosclerotic heart disease of native coronary artery with other forms of angina pectoris (principal); R53.83 Other fatigue; Z79.02 Long term (current) use of antithrombotics/antiplatelets; Z79.82 Long term (current) use of aspirin; Z79.51 Long term (current) use of inhaled steroids; Z79.899 Other long term (current) drug therapy; Z88.0 Allergy status to penicillin; Z82.49 Family history of ischemic heart disease and other diseases of the circulatory system
CPT/HCPCS: 80048; 85025; 85347; 92928; 92978; 93458; 99152; 99153; C1725; C1769; C1874; C1887; C9600; J1200; J1644; J3010; J7040; Q9967

== ENCOUNTER 2025-09-06 10:40 | Outpatient (CLI) | payer OTHER, SELFPAY ==
[2025-09-06 11:12] LABS: Hematocrit 35.7 % (37.0-47.0); Hemoglobin 11.9 g/dL (12.2-16.2); Immature Granulocytes % 0.5 %; Mean Corpuscular HGB Conc 33.3 g/dL (31.8-35.4); Mean Corpuscular Hemoglobin 28.1 pg (27.0-31.2); Mean Corpuscular Volume 84.4 fl (81-99); Nucleated Red Blood Cells % 0 %; Platelet Count 249 K/mm3 (142-424); Red Blood Count 4.23 M/mm3 (4.20-5.40); Red Cell Distribution Width-SD 35.5 fL; White Blood Count 4.4 K/mm3 (4.8-10.8)
[2025-09-06 11:32] LABS: Anion Gap 8.0 mEq/L (5-15); Blood Urea Nitrogen 17 mg/dl (7-17); Calcium 9.0 mg/dl (8.4-10.2); Carbon Dioxide 30 mmol/L (22.0-30.0); Chloride 103 mmol/L (98-107); Creatinine,Serum 1.20 mg/dl (0.52-1.04); Estimated Glomerular Filt Rate 46 ml/min (>60); GFR (African American) 55 ML/MIN (>60); Glucose 85 mg/dl (74-100); Potassium 4.0 mmoL/L (3.5-5.1); Sodium 137 mmol/L (136-145)
--- OUTSIDE RECORDS SUMMARY | 2025-09-06 12:07 | XMS_ITS | Clinical Summary ---
[facility] Address [address] [place] [address] Care Team Providers Care Dairy Powder Mixer Operator Name Role Phone Jeanine Mancia MD Primary Care Provider [phone] Allergies Active Allergy Reactions Criticality Noted Date Comments Penicillins Rash Low 04/02/2017 Medications citalopram (CeleXA) 20 MG tablet Take 40 mg by mouth Daily. 1 08/08/2019 Active lisinopril-hydro chlorothiazide (PRINZIDE,ZESTOR ETIC) 10-12.5 MG per tablet Take 1 tablet by mouth Every Morning. 1 08/08/2019 Active rosuvastatin (CRESTOR) 5 MG tablet Daily. 07/08/2021 Active acetaminophen (TYLENOL) 650 MG 8 hr tablet Take 1,300 mg by mouth Every 8 (Eight) Hours As Needed for Mild Pain . Active Active Problems Problem Noted Date Diagnosed Date Preoperative clearance 07/17/2021 Family History Medical History Relation Name Comments Heart disease Father Relation Name Status Comments Father Alive Mother Social History Tobacco Use Types Packs/Day Years Used Date Smoking Tobacco: Never Smokeless Tobacco: Never Alcohol Use Standard Drinks/Week Comments Not Currently 0 (1 standard drink = 0.6 oz pur e alcohol) Abuse Screen Answer Date Recorded Unsafe at Home or Work/School Not on file Feels Threatened by Someone? Not on file 07/2023 Does Anyone Keep You from Co ntacting Others or Doint Things Outside the Home? Not on file 06/30/2023 Physical Sign of Abuse Present Not on file 1 Housing Stability Answer Date Recorded Current Living Arrangements Not on file 06/20 Potentially Unsafe Housing Conditions Not on michelle e 06/30/2023 Family and Community Support Answer Reinier e Recorded Help with Day-to-Day Activities Not on file 06/30/2023 Lonely or Isolated Not on file 06/30/2023 Employment Answer Date Recorded Do you want help finding or keeping work or a elvis b? Not on file 06/30/2023 Disabilities Answer Date Recorded Concentrating, Remembering, or Making Decisions Difficulty Not on file 06/30/2023 Doing Errands Independently Difficulty Not on fi le 06/30/2023 Education Answer Date Recorded Help with school or training? Not on file Preferred Language Not on file 06/30/2023 Comments No Sex and Gender Information Value Date Recorded Sex Assigned at Not on file Legal Sex Female 3:02 PM EDT Gender Identity Not on file Sexual Orientation Not on file Last Filed Vital Signs Vital Sign Reading Time Taken Comments Blood Pressure 116/62 07/24/2021 2:30 PM EDT Pulse 63 07/24/2021 2:30 PM EDT Temperature 36.9 C (98.5 F) 08/14/2019 2:51 PM EST Respiratory Rate 16 08/14/2019 2:51 PM EST Oxygen Saturation 99% 07/24/2021 2:30 PM EDT Inhaled Oxygen Concentration - - Weight 104 kg (230 lb) 07/24/2021 2:30 PM EDT Height 172.7 cm (5' 8 ) 07/24/2021 2:30 PM EDT Body Mass Index 34.97 07/24/2021 2:30 PM EDT Plan of Treatment Health Maintenance Due Date Last Done Comments Annual Gynecologic Pelvic and Breast Exam 1965 MAMMOGRAM 2004 COLOGUARD 2009 COLON CANCER SCREENING 5 YEAR SIGMOIDOSCOPY 2009 COLONOSCOPY [address] CAN[address] SCREENING [address] COLONOGRAPHY 2009 FECAL OCCULT BLOOD TEST 2009 FIT Testing (1 year) 2009 Pneumococcal Vaccine 50+ (1 of 1 - PCV) 2014 ZOSTER VACCINE (1 of 2) 2014 ANNUAL PHYSICAL 04/02/2017 HEPATITIS C SCREENING 04/02/2017 INFLUENZA VACCINE 04/20/2025 TDAP/TD VACCINES (2 - Td or Tdap) 05/22/2026 016 Insurance Care Teams Dairy Powder Mixer Operator Relationship Specialty Start Date End Date Jeanine Mancia MD PCP - General Family Medicine 04/02/17
--- OUTSIDE RECORDS SUMMARY | 2025-09-06 12:07 | XMS_ITS | Clinical Summary ---
Author Organization [facility] Address [address] [place] [address] Care Team Providers Care Test Boring Crew Chief Name Role Phone FerrellChela macario [place] HAN Primary Care Provider [phone] Allergies Active Allergy Reactions Criticality Noted Date Comments Penicillins Itching Medium 05/12/2021 Medications lisinopril-hydro CHLOROthiazide 10-12.5 MG tablet Take 1 tablet by mouth 1 (one) time each day in the morning. 02/10/2021 Active citalopram (CeleXA) 40 MG tablet Take 40 mg by mouth 1 (one) time each day. 04/09/2021 Active rosuvastatin (Crestor) 5 MG tablet Take 5 mg by mouth 1 (one) time each day. 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 Immunizations Immunization Administration Dates Next Due Tdap 05/22/2016 Family History Medical History Relation Name Comments Heart attack Father Other cancer Maternal Grandfather Diabetes Other Relation Name Status Comments Father Maternal Grandfather Other Social History Tobacco Use Types Packs/Day Years Used Date Smoking Tobacco: Never Smokeless Tobacco: Never Tobacco Cessation:Counseling Given: Not Answered Alcohol Use Standard Drinks/Week Comments No 0 (1 standard drink = 0.6 oz pur e alcohol) PHQ-2 Answer Date Recorded Patient Health Questionnaire-2 Score 0 05/12/2021 Comments Unknown Sex and Gender Information Value Date Recorded Sex Assigned at Not on file Legal Sex Female 8:50 PM EDT Gender Identity Not on file Sexual Orientation Not on file Last Filed Vital Signs Vital Sign Reading Time Taken Comments Blood Pressure 117/76 05/05/2023 8:48 AM EDT Pulse 51 05/05/2023 8:47 AM EDT Temperature 36.5 C (97.7 F) 05/05/2023 8:47 AM EDT Respiratory Rate 16 05/05/2023 8:47 AM EDT Oxygen Saturation - - Inhaled Oxygen Concentration - - Weight 110 kg (243 lb 2.7 oz) 05/05/2023 8:47 AM EDT Height 170 cm (5' 6.93 ) 05/05/2023 8:47 AM EDT Body Mass Index 38.17 05/05/2023 8:47 AM EDT Plan of Treatment Health Maintenance Due Date Last Done Comments [facility]-HIV Screening 1964 [facility]-Hepatitis C Screening 1964 [facility]-Infant/Child/Adol SDOH Screenings 1964 [facility]- SDOH Screenings 1982 [facility]-Adult SDOH Screenings 1982 [facility]-Pap Smear 1985 [facility]-Cervical Cancer Screening 1994 [facility]-HPV/Cotest 1994 CT Colonography 2009 Colonoscopy 2009 FIT-DNA 2009 FIT 2009 FOBT 2009 Sigmoidoscopy 2009 [facility]-Colorectal Cancer Screening 2009 [facility]-Breast Cancer Screening 2014 [facility]-Pneumococcal Vaccine: 50+ Years (1 of 1 - PCV) 2014 [facility]-Zoster Vaccines (1 of 2) 2014 [facility]-Depression Screening 05/12/2022 05/12/2021 [id number] Vaccine (3 - season) 2025 01/25/2021, 12/31/2020 [facility]-Influenza Vaccine (#1) 05/21/202510/11, 07/09/2021, 10/11/2020, Additional history exists [facility]-DTaP,Tdap,and Td Vaccines (2 - Td or Tdap) 05/22/2026 05/22/2016 [facility]-RSV Vaccine: 60+ Years or (1 - 1-dose 75+ series) 12/25/2039 [facility]-Obesity Intervention Completed 05/05/2023 HPV Vaccines (No Doses Required) Completed [facility]-HIB Vaccines Aged Out No longer e ligible based on patient's age to complete this topic [facility]-Hepatitis A Vaccines Aged Out No longer eligible based on patient's age to complete this topic [facility]-IPV Vaccines Aged Out No longer e ligible based on patient's age to complete this topic [facility]-Rotavirus Vaccines Aged Out No lo nger eligible based on patient's age to complete this topic Care Teams Test Boring Crew Chief Relationship Specialty Start Date End Date Chela Ferrell, EMELY [address] [place] [address] PCP - General 01/31/21
== END 2025-09-06 23:59 | disposition home or self-care (01) ==
LOC: LAB 10:41
PROVIDERS: PCP Nurse Practitioner Family; Visit Provider Internal Medicine
DX: I25.10 Atherosclerotic heart disease of native coronary artery without angina pectoris (principal)
CPT/HCPCS: 36415; 80048; 85025

== ENCOUNTER 2025-09-18 07:55 | Outpatient (CLI) | payer OTHER, SELFPAY ==
--- OUTSIDE RECORDS SUMMARY | 2025-09-18 07:56 | XMS_ITS | Clinical Summary ---
[facility] Address [address] [place] [address] Care Team Providers Care Apprentice/Lineman Name Role Phone Jeanine Mancia MD Primary Care Provider [phone] Allergies Active Allergy Reactions Criticality Noted Date [...] or Tdap) 05/22/2026 016 Insurance Care Teams Apprentice/Lineman Relationship Specialty Start Date End Date Jeanine Mancia MD PCP - General Family Medicine 04/02/17
--- OUTSIDE RECORDS SUMMARY | 2025-09-18 07:56 | XMS_ITS | Data Portability ---
Author Organization [employer] [facility] Address [address] [place] [address] Assessment Encounter Date Assessment Date Assessment LastModified by Organization Details LastModified Time 12/12/2024 12/12/[address] Chest PE protocol and GB US. Waldo diet encouraged. Alarm sx that would necessitate ER visit explained. Not available 12/12/2024 17:37:57 08/13/2025 08/13/2025 Tasia Alexis presented with several months of fatigue despite adequate sleep, numbness in arms/hands, tingling in feet, and two episodes of radiating chest pain. Her history includes splenic aneurysm, hypertension, acid reflux, and mood disorder. Evaluation revealed well-controlled blood pressure (124/56). Management included cardiology referral for chest pain, comprehensive bloodwork for fatigue and numbness, home sleep study for severe snoring, continuation of blood pressure medication and Celexa, resumption of aspirin, and rescheduling of splenic aneurysm follow-up. Not available 08/13/2025 12:38:07 09/12/2025 09/12/2025 Tasia Alexis, a female patient with newly diagnosed cardiac disease, presented for follow-up after LAD stent placement on September 04. She reported improved chest pressure without radiation and mild shortness of breath with exertion. Blood pressure was low at 89/55 mmHg. She was taking Effient, aspirin, and Crestor 5mg (limited by statin intolerance). Management included continuing dual antiplatelet therapy, increasing fluid intake, reducing Dr. Pepper consumption, administering influenza vaccine, and proceeding with scheduled echocardiogram to evaluate decreased ejection fraction. Not available 09/12/2025 12:51:18 Plan of Treatment Reminders Order Date Submit Date Provider Last Modified By Organization Details Last Modified Time Details Appointments None recorded. Lab lipid panel, serum 2024 025 [facility] ([facility]), [address] [place], [address], 5 07:09:06 CBC w/ auto diff [address] [facility] [address] [place], [address], 5 07:09:05 CMP, serum or plasma [address] [facility] [address] [place], [address], 5 07:09:05 TSH + free T4, serum [address] [facility]), [address] [place], [address], 5 07:09:04 cobalamin and folate panel, serum [address] [facility]), [address] [place], [address], 5 07:09:06 magnesium, serum or plasma 2024 025 [facility] [place], [address], 5 07:09:07 vitamin D, 25-hydroxy, total, serum [address] [facility] [address] [place] [address], [address], 5 07:09:07 HbA1c (hemoglobin A1c), blood 2024 025 [facility] [address] [place] [address], [address], 5 07:09:07 CMP, serum or plasma 2024 025 [email or web address] [facility] ([place]), [address] [place], [address], 5 15:22:44 amylase + lipase, serum 2024 025 [email or web address] [facility] ([place]), [address] [place], [address], 5 15:22:45 CBC w/ auto diff 2024 025 [email or web address] [facility] ([place]), [address] [place], [address], 5 15:22:45 D-dimer, quant, plasma 2024 025 [email or web address] [facility] ([place]), [address] [place], [address], 5 15:22:45 Referral cardiologis t referral - HERMES please 2024 [facility], [address], [place], [address], 16:46:07 Procedures None recorded. Surgeries None recorded. Imaging home sleep study 2024 025 [facility], [address] [facility], [facility], [place], [address], 5 04:13:00 XR, chest, 2 view 2024 025 [email or web address] 7 [facility], [address] [place] [address], [address], 5 09:59:21 CT, chest, w/ contrast - first avail, obtain labs at [facility] day of scan for contrast purposes. 2024 [facility] ([facility]), [address], [place], [address], 09:36:15 US, abdomen, limited - RUQ; first available appt; SAME DAY THE CT 2024 [facility] ([facility]), [address], [place], [place], [address], 16:17:22 Medication Orders rosuvastati n 5 mg tablet 2024 [facility], [address] [place] [address], [address], 13:47:08 citalopram 40 mg tablet 2024 [facility], [address] [place] [address], [address], 13:47:06 lisinopril 10 mg-hydrochl orothiazide 12.5 mg tablet 2024 [facility], [address] [place] [address], [address], 13:47:07 ceftriaxone 1 gram solution for injection 2024 [email or web address] Not available 11:02:47 Depo-Medrol 40 mg/mL suspension for injection 2024 [email or web address] Not available 11:02:44 bromphenira mine-pseudo ephedrine-D M 2 mg-30 mg-10 mg/5 mL oral syrup 2024 [facility], [address] [place] [address], [address], 11:30:40 Advair HFA 115 mcg-21 mcg/actuati on aerosol inhaler 2024 025 [facility], [address] [place] [address], [address], 5 11:56:24 azithromyci n 250 mg tablet 2024 025 [facility], [address] [place] [address], [address], 5 08:43:18 prednisone 20 mg tablet 2024 025 [facility], [address] [place] [address], [address], 5 08:38:16 Patient TargetsNo targets recorded. Patient InstructionsNo instructions recorded. Reason for Referral [employer] Aide Referral for Ch est pain HERMES please Referring Physician: Chela Ferrell, Family Medicine, Encounter Date: 08/13/2025 Results Created Date Observation Date Name Description Value Unit Range Abnormal Flag Note LastModifiedBy Organization Detail LastModifiedTime 08/13/2008/14/2025 TSH+F REE T4 TSH 1.670 uIU/m L 0.450- 4.500 normal Not Available [facility] ([facility]) [address] [place], [address], 08/14/2025 07:09:04 08/13/2008/14/2025 TSH+F REE T4 T4,free(dire ct) 1.27 NG/dL 0.82-1 .77 normal Not Available [facility] ([facility]) [address] [place], [address], 08/14/2025 07:09:04 08/13/2008/14/2025 CBC WITH DIFFE RENTI AL/PL ATELE T WBC 3.6 x10e3 /uL 3.4-10 .8 normal Not Available [facility] ([facility]) [address] [place], [address], 08/14/2025 07:09:05 08/13/2008/14/2025 CBC WITH DIFFE RENTI AL/PL ATELE T RBC 4.85 x10e6 /uL 3.77-5 .28 normal Not Available [facility] ([facility]) [address] [place], [address], 08/14/2025 07:09:05 08/13/2008/14/2025 CBC WITH DIFFE RENTI AL/PL ATELE T hemoglobin 13.4 g/dL 11.1-1 5.9 normal Not Available [facility] ([facility]) [address] [place], [address], 08/14/2025 07:09:05 08/13/2008/14/2025 CBC WITH DIFFE RENTI AL/PL ATELE T hematocrit 42.5 % 34.0-4 6.6 normal Not Available [facility] ([facility]) [address] [place], [address], 08/14/2025 07:09:05 08/13/2008/14/2025 CBC WITH DIFFE RENTI AL/PL ATELE T MCV 88 fL 79-97 normal Not Available [facility] ([facility]) [address] [place], [address], 08/14/2025 07:09:05 08/13/2008/14/2025 CBC WITH DIFFE RENTI AL/PL ATELE T MCH 27.6 pg 26.6-3 3.0 normal Not Available [facility] ([facility]) [address] [place], [address], 08/14/2025 07:09:05 08/13/2008/14/2025 CBC WITH DIFFE RENTI AL/PL ATELE T MCHC 31.5 g/dL 31.5-3 5.7 normal Not Available [facility] ([facility]) [address] [place], [address], 08/14/2025 07:09:05 08/13/2008/14/2025 CBC WITH DIFFE RENTI AL/PL ATELE T RDW 11.6 % 11.7-1 5.4 below low normal Not Available [facility] ([facility]) [address] [facility], [place], [address], 08/14/2025 07:09:05 08/13/2008/14/2025 CBC WITH DIFFE RENTI AL/PL ATELE T platelets 232 x10e3 /uL 150-45 0 normal Not Available [facility] ([facility]) [address] [facility], [place], [address], 08/14/2025 07:09:05 08/13/2008/14/2025 CBC WITH DIFFE RENTI AL/PL ATELE T neutrophils 52 % not estab. normal Not Available [facility] ([facility]) [address] [facility], [place], [address], 08/14/2025 07:09:05 08/13/2008/14/2025 CBC WITH DIFFE RENTI AL/PL ATELE T lymphs 33 % not estab. normal Not Available [facility] ([facility]) [address] [facility], [place], [address], 08/14/2025 07:09:05 08/13/2008/14/2025 CBC WITH DIFFE RENTI AL/PL ATELE T monocytes 9 % not estab. normal Not Available [facility] ([facility]) [address] [facility], [place], [address], 08/14/2025 07:09:05 08/13/2008/14/2025 CBC WITH DIFFE RENTI AL/PL ATELE T eos 5 % not estab. normal Not Available [facility] ([facility]) [address] [place], [address], 08/14/2025 07:09:05 08/13/2008/14/2025 CBC WITH DIFFE RENTI AL/PL ATELE T basos 1 % not estab. normal Not Available [facility] ([facility]) [address] [place], [address], 08/14/2025 07:09:05 08/13/2008/14/2025 CBC WITH DIFFE RENTI AL/PL ATELE T immature cells RADIATION ONCOLOGY THERAPIST Not Available [facility] ([facility]) [address] [place], [address], 08/14/2025 07:09:05 08/13/2008/14/2025 CBC WITH DIFFE RENTI AL/PL ATELE T neutrophils (absolute) 1.8 x10e3 /uL 1.4-7. 0 normal Not Available [facility] ([facility]) [address] [place], [address], 08/14/2025 07:09:05 08/13/2008/14/2025 CBC WITH DIFFE RENTI AL/PL ATELE T lymphs (absolute) 1.2 x10e3 /uL 0.7-3. 1 normal Not Available [facility] ([facility]) [address] [place], [address], 08/14/2025 07:09:05 08/13/2008/14/2025 CBC WITH DIFFE RENTI AL/PL ATELE T monocytes(ab solute) 0.3 x10e3 /uL 0.1-0. 9 normal Not Available [facility] ([facility]) [address] [place], [address], 08/14/2025 07:09:05 08/13/2008/14/2025 CBC WITH DIFFE RENTI AL/PL ATELE T eos (absolute) 0.2 x10e3 /uL 0.0-0. 4 normal Not Available [facility] ([facility]) [address] [place], [address], 08/14/2025 07:09:05 08/13/2008/14/2025 CBC WITH DIFFE RENTI AL/PL ATELE T baso (absolute) 0.0 x10e3 /uL 0.0-0. 2 normal Not Available [facility] ([facility]) [address] [facility], [place], [address], 08/14/2025 07:09:05 08/13/2008/14/2025 CBC WITH DIFFE RENTI AL/PL ATELE T immature granulocytes 0 % not estab. Not Available [facility] ([facility]) [address] [facility], [place], [address], 08/14/2025 07:09:05 08/13/2008/14/2025 CBC WITH DIFFE RENTI AL/PL ATELE T immature grans (abs) 0.0 x10e3 /uL 0.0-0. 1 Not Available [facility] ([facility]) [address] [facility], [place], [address], 08/14/2025 07:09:05 08/13/2008/14/2025 CBC WITH DIFFE RENTI AL/PL ATELE T NRBC RADIATION ONCOLOGY THERAPIST Not Available [facility] ([facility]) [address] [facility], [place], [address], 08/14/2025 07:09:05 08/13/2008/14/2025 CBC WITH DIFFE RENTI AL/PL ATELE T hematology comments: RADIATION ONCOLOGY THERAPIST Not Available [facility] ([facility]) [address] [facility], [place], [address], 08/14/2025 07:09:05 08/13/2008/14/2025 COMP. METAB OLIC PANEL (14) glucose 88 mg/dL 70-99 normal Not Available [facility] ([facility]) [address] [place], [address], 08/14/2025 07:09:05 08/13/2008/14/2025 COMP. METAB OLIC PANEL (14) BUN 19 mg/dL 8-27 normal Not Available [facility] ([facility]) [address] [facility] [place], [address], 08/14/2025 07:09:05 08/13/2008/14/2025 COMP. METAB OLIC PANEL (14) creatinine 1.08 mg/dL 0.57-1 .00 above high normal Not Available [facility] ([facility]) [address] [facility] [place], [address], 08/14/2025 07:09:05 08/13/2008/14/2025 COMP. METAB OLIC PANEL (14) eGFR 59 mL/mi n/1.7 3 >59 below low normal Not Available [facility] ([facility]) [address] [facility] [place], [address], 08/14/2025 07:09:05 08/13/2008/14/2025 COMP. METAB OLIC PANEL (14) BUN/creatini ne ratio 18 12-28 normal Not Available [facility] ([facility]) [address] [facility] [place], [address], 08/14/2025 07:09:05 08/13/20 25 08/14/2025 COMP. METAB OLIC PANEL (14) sodium 138 mmol/ L 134-14 4 normal Not Available [facility] ([facility]) [address] [place], [address], 08/14/2025 07:09:05 08/13/2008/14/2025 COMP. METAB OLIC PANEL (14) potassium 4.5 mmol/ L 3.5-5. 2 normal Not Available [facility] ([facility]) [address] [facility] [place], [address], 08/14/2025 07:09:05 08/13/2008/14/2025 COMP. METAB OLIC PANEL (14) chloride 99 mmol/ L 96-106 normal Not Available [facility] ([facility]) [address] [facility] [place], [address], 08/14/2025 07:09:05 08/13/2008/14/2025 COMP. METAB OLIC PANEL (14) carbon dioxide, total 25 mmol/ L 20-29 normal Not Available [facility] ([facility]) [address] [facility] [place], [address], 08/14/2025 07:09:05 08/13/2008/14/2025 COMP. METAB OLIC PANEL (14) calcium 9.4 mg/dL 8.7-10 .3 normal Not Available [facility] ([facility]) [address] [facility] [place], [address], 08/14/2025 07:09:05 08/13/2008/14/2025 COMP. METAB OLIC PANEL (14) protein, total 6.6 g/dL 6.0-8. 5 normal Not Available [facility] ([facility]) [address] [facility] [place], [address], 08/14/2025 07:09:05 08/13/2008/14/2025 COMP. METAB OLIC PANEL (14) albumin 4.3 g/dL 3.8-4. 9 normal Not Available [facility] ([facility]) [address] [facility] [place], [address], 08/14/2025 07:09:05 08/13/2008/14/2025 COMP. METAB OLIC PANEL (14) globulin, total 2.3 g/dL 1.5-4. 5 Not Available [facility] ([facility]) [address] [facility] [place], [address], 08/14/2025 07:09:05 08/13/2008/14/2025 COMP. METAB OLIC PANEL (14) bilirubin, total 0.5 mg/dL 0.0-1. 2 normal Not Available [facility] ([facility]) [address] [facility] [place], [address], 08/14/2025 07:09:05 08/13/2008/14/2025 COMP. METAB OLIC PANEL (14) alkaline phosphatase 115 IU/L 49-135 normal Not Available [facility] ([facility]) [address] [facility] [place], [address], 08/14/2025 07:09:05 08/13/2008/14/2025 COMP. METAB OLIC PANEL (14) AST (SGOT) 17 IU/L 0-40 normal Not Available [facility] ([facility]) [address] [facility] [place], [address], 08/14/2025 07:09:05 08/13/2008/14/2025 COMP. METAB OLIC PANEL (14) ALT (SGPT) 14 IU/L 0-32 normal Not Available [facility] ([facility]) [address] [facility] [place], [address], 08/14/2025 07:09:05 08/13/2008/14/2025 LIPID PANEL cholesterol, total 212 mg/dL 100-19 9 above high normal Not Available [facility] ([facility]) [address] [facility] [place], [address], 08/14/2025 07:09:06 08/13/2008/14/2025 LIPID PANEL triglyceride s 91 mg/dL 0-149 normal Not Available [facility] ([facility]) [address] [facility] [place], [address], 08/14/2025 07:09:06 08/13/2008/14/2025 LIPID PANEL HDL cholesterol 61 mg/dL >39 normal Not Available [facility]) [address] [facility] [place], [address], 08/14/2025 07:09:06 08/13/2008/14/2025 LIPID PANEL VLDL cholesterol sydney 16 mg/dL 5-40 Not Available [facility] ([facility]) [address] [place], [address], 08/14/2025 07:09:06 08/13/2008/14/2025 LIPID PANEL LDL chol calc ([facility]) 135 mg/dL 0-99 above high normal Not Available [facility] ([facility]) [address] [facility], [place], [address], 08/14/2025 07:09:06 08/13/2008/14/2025 LIPID PANEL LDL calc comment: RADIATION ONCOLOGY THERAPIST Not Available [facility] ([facility]) [address] [facility], [place], [address], 08/14/2025 07:09:06 08/13/2008/14/2025 VITAM IN B12 AND FOLAT E vitamin B12 379 pg/mL 232-12 45 normal Not Available [facility] ([facility]) [address] [place], [address], 08/14/2025 07:09:06 08/13/2008/14/2025 VITAM IN B12 AND FOLAT E folate (folic acid), serum 3.9 NG/mL >3.0 normal A serum folat e quoc ntrat ion of less than 3.1 ng/mL is consi dered to repre sent clini sydney defic iency . Not Available [facility] ([facility]) [address] [facility], [place], [address], 08/14/2025 07:09:06 08/13/2008/14/2025 HEMOG LOBIN A1C hemoglobin A1C 5.5 % 4.8-5. 6 normal Predi abete s: 5.7 - 6.4 Diabe nelson: >6.4 Glyce kristen contr ol for adult s with diabe nelson: <7.0 Not Available [facility] ([facility]) [address] [facility], [place], [address], 08/14/2025 07:09:07 08/13/20 25 08/14/2025 VITAM IN D, 25-HY DROXY vitamin D, 25-hydroxy 31.6 NG/mL 30.0-1 00.0 Vitam in D defic iency has been defin ed by the Insti tute of Medic ine and an Endoc rine Socie ty pract ice guide line as a level of serum 25-OH vitam in D less than 20 ng/mL (1,2) . The Endoc rine Socie ty went on to [facility] er defin e vitam in D insuf ficie ncy as a level betwe en 21 and 29 ng/mL (2). 1. IOM (Inst itute of Medic ine). 2010. Dieta ry refer ence intak es for calci um and D. Vel de la garza [place]: The [facility] Press . 2. Salvador garibay [place], Yi duckworth [place], Alfreda off-F errar i RAMIREZ, et al. Evalu ation , treat ment, and preve ntion of vitam in D defic iency : an Endoc rine Socie ty clini [place] pract ice guide line. JCEM. 2010; 96(7) :1911 -30. Not Available [facility] ([facility]) [address] [facility], [place], [address], 08/14/2025 07:09:07 08/13/2008/14/2025 MAGNE SIUM magnesium 2.3 mg/dL 1.6-2. 3 normal Not Available [facility] ([facility]) [address] [facility], [place], [address], 08/14/2025 07:09:07 12/21/1912/20/2024 US, abdom en, limit ed No observ ation record ed. [email or web address] [facility] [address], [place], [address], 12/22/2024 08:51:06 01/04/20 25 01/02/2025 CT, chest , w/ contr ast No observ ation record ed. [address], [place], [address], 01/09/2025 09:38:26 01/19/20 25 01/16/2025 XR, knee No observ ation record ed. [address] (Radiology) [address] [place], [address], 01/19/2025 13:36:50 01/19/20 25 01/16/2025 XR, knee No observ ation record ed. [address] (Radiology) [address] [place], [address], 01/19/2025 13:36:30 04/20/20 25 XR, chest , 2 view No observ ation record ed. [address], [address], 05/04/2025 10:35:04 Result Notes None recorded. Problems Name Problem SNOMED Code Status Onset Date Resolution Date Notes Provider Name and Address Organization Details Recorded Time Mixed hyperlip idemia 807916923 Active 2017 Problem Code: E78.2; Problem Code Type: ICD-10; Not Available [facility] 22:26:54 Hyperten sive disorder 56522547 Active 2017 Problem Code: I10; Problem Code Type: ICD-10; Not Available [facility] 2 22:26:54 Polyp of colon 14234125 Completed 201707/27/2022 Problem Code: K63.5; Problem Code Type: ICD-10; [place] [facility]. 10:51:16 Idiopath ic osteoart hritis 010910090 Completed 201709/24/2018 Problem Code: M17.0; Problem Code Type: ICD-10; Not Available [facility] 22:26:55 Body mass index 30+ - obesity 974505606 Completed 201710/14/2020 Problem Code: Z68.33; Problem Code Type: ICD-10; Not Available [facility] 22:26:59 Osteoart hritis of knee 005302511 Completed 201709/24/2018 Not Available [facility] 2 22:27:01 Left carotid artery occlusio n [id number] 9105 Completed 201708/22/2018 Not Available [facility] 2 22:26:54 Precordi al pain 36022703 Completed 201708/22/2018 Problem Code: R07.2; Problem Code Type: ICD-10; Not Available [facility] 22:26:56 Nausea 689100600 Completed 201707/07/2018 Problem Code: R11.0; Problem Code Type: ICD-10; Not Available [facility] 2 22:26:56 Carotid artery occlusio n 684801123 Completed 201708/22/2018 Problem Code: 433.10; Problem Code Type: ICD-9; Not Available [facility] 22:27:00 Vitamin D deficien 27717862 Active 2018 Problem Code: E55.9; Problem Code Type: ICD-10; Not Available [facility] 2 22:26:54 Pain in left foot 62088510135 9107 Completed 201804/12/2019 Problem Code: M79.672; Problem Code Type: ICD-10; Chela Ferrell, EMELY [address] [place] [address], [address] , [employer] 5 17:06:29 Pain in limb 14667604 Completed 201807/27/2022 Problem Code: 729.5; Problem Code Type: ICD-9; CHENCHO avilez, [employer] 2 10:51:16 Screenin g mammogra phy Completed 201811/23/2018 Problem Code: V76.12; Problem Code Type: ICD-9; CHENCHO SANCHEZ null, [employer] 2 10:51:16 Strain of left Achilles tendon [id number] 788036 Completed 201804/12/2019 Not Available [facility] 2 22:26:57 Sprain of distal tibiofib ular ligament 31176454 Completed 201807/27/2022 Problem Code: S93.432A ; Problem Code Type: ICD-10; CHENCHO SANCHEZ null, [employer] 2 10:51:16 Generali zed anxiety disorder 81830063 Active 2018 Problem Code: F41.1; Problem Code Type: ICD-10; Not Available [facility] 2 22:26:56 Injury of Achilles tendon 852633038 Completed 201807/27/2022 Problem Code: S86.001S ; Problem Code Type: ICD-10; CHENCHO SANCHEZ null, [employer] 2 10:51:16 General examinat ion of patient Completed 201907/27/2022 CHENCHO CROOKSR null, [employer] 2 10:51:16 Body mass index 30+ - obesity 941306222 Active 2019 Problem Code: Z68.32; Problem Code Type: ICD-10; Not Available [facility] 2 22:26:59 Benign neoplasm of skin of eyelid 54009778 Completed 201907/27/2022 Problem Code: D23.10; Problem Code Type: ICD-10; CHENCHO CROOKSR null, [employer] 2 10:51:16 Screenin g for malignan t neoplasm of colon Completed 201907/27/2022 CHENCHO CROOKSR null, [employer] 2 10:51:16 Screenin g mammogra phy Completed 201910/14/2020 Problem Code: Z12.31; Problem Code Type: ICD-10; CHENCHO MYNEAR null, [employer] 10:51:16 Influenz a vaccine needed 79797341359 06 Completed 202012/12/2021 Problem Code: Z23; Problem Code Type: ICD-10; Not Available [facility] 22:26:58 Cervical disc disorder with radiculo toney 102929889 Active 2020 Problem Code: M50.10; Problem Code Type: ICD-10; Not Available [facility] 22:26:55 Neck pain 98309664 Completed 202007/27/2022 CHENCHO TREENEAR null, [employer] 10:51:16 Right lateral elbow tendinop athy 52753173732 9107 Completed 202007/27/2022 Problem Code: M77.11; Problem Code Type: ICD-10; CHENCHO TREENEAR null, [employer] 10:51:16 Spinal stenosis in cervical region 12993292 Active 2020 Problem Code: M48.02; Problem Code Type: ICD-10; Not Available [facility] 22:26:55 Cough 39730919 Completed 202012/12/2021 Problem Code: R05; Problem Code Type: ICD-10; Not Available [facility] 22:26:56 Screenin g mammogra phy Completed 202007/27/2022 Problem Code: Z12.31; Problem Code Type: ICD-10; CHENCHO MYNEAR null, [employer] 10:51:16 Pain in left knee Completed 202011/04/2022 Problem Code: M25.562; Problem Code Type: ICD-10; CHENCHO MYNEAR null, [employer] 3 14:26:16 Chronic kidney disease stage 2 920805973 Active 2020 Problem Code: N18.2; Problem Code Type: ICD-10; Not Available [facility] 2 22:26:56 Pre-surg aram evaluati on Completed 202007/27/2022 CHENCHO avilez, [employer] 2 10:51:16 Influenz a vaccine needed [id number] 06 Completed 202012/12/2021 Problem Code: Z23; Problem Code Type: ICD-10; Not Available [facility] 2 22:26:58 Acute sinusiti s 24871546 Completed 202007/27/2022 Problem Code: J01.90; Problem Code Type: ICD-10; Chela Ferrell APRN [address] [place] [address], [phone] , [employer] 5 16:17:04 Cough 43746222 Completed 202012/12/2021 Problem Code: R05; Problem Code Type: ICD-10; Not Available [facility] 2 22:26:56 Pyrexia of unknown origin 8149740 Completed 202007/27/2022 Problem Code: R50.9; Problem Code Type: ICD-10; CHENCHO SANCHEZ null, [employer] 2 10:51:16 Aftercar e Completed 202111/04/2022 CHENCHO TREEJEEVANR null, [employer] 3 14:26:16 Acute serous otitis media of bilatera l ears 21791561705 73619 Completed 202111/04/2022 CHENCHO TREEJEEVANR null, [employer] 3 14:26:16 Acute sinusiti s 54433421 Active 2024 Problem Code: J01.90; Problem Code Type: ICD-10; Chela Ferrell APRN [address] [place], [address] , [employer] 5 16:17:04 Persiste nt cough 143316754 Active 2024 Chela Ferrell APRN [address] [place] [address], [phone] , [employer] 5 08:26:23 Acute lower respirat ory tract infectio n 801637853 Active 2024 Chela Ferrell APRN [address] [place] [address], [address] , [employer] 5 09:00:35 Fatigue 82138079 Active 2024 Chela Ferrell APRN [address] [place] [address], [phone] , [employer] 11:19:43 Paresthe linda 86362586 Active 2024 Chela Ferrell APRN [address] [place] [address], [phone] , [employer] 5 11:20:36 Chest pain 74017042 Active 2024 Chela Ferrell APRN [address] [place] [address], [address] , [employer] 5 11:29:12 Snoring 77063407 Active 2024 Chela Ferrell APRN [address] [place] [address], [address] , [employer] 5 11:29:24 Coronary arterios clerosis 71054392 Active 2024 Chela Ferrell APRN [address] [place] [address], [phone] , [employer] 5 11:18:40 Problem Notes None recorded. Procedures Surgical History Date Name Laterality Status Provider Name and Address Organization Details Recorded Time 09/04/20 25 catheterization of left heart completed Chela Ferrell APRN [address] [place], [address], [employer] 09/04/2025 11:30:52 04/20/20 22 Most Recent Mammogram completed CHENCHO [place] - [facility]. 07/27/2022 10:52:09 12/13/19 22 Total knee arthroplasty completed Not Available [facility] 05/26/2022 22:56:08 06/10/20 18 section completed Not Available [facility] 05/26/2022 22:56:08 06/10/20 18 ligation of bilateral fallopian tubes completed Not Available [facility] 05/26/2022 22:56:08 Imaging Results None recorded. Procedure Notes None recorded. Medical Equipment None Reported. Allergies Allergen ID Allergen Name Allergen Category Reaction Reaction Severity Criticality Documentation Date Start Date Code Code System Note Provider Name and Address Organization Details Recorded Time 66635 Product containin g penicilli n (product) medicatio n Not available Not available Not available 05/26/2022 21613 8001 SNOMED Aller gyCod e: ''; Aller gyNam e: 'Peni cilli ns'; Aller gyCon ceptT ype: ''; Not Available [facility] 22:57:18 Medications Name Sig Start Date Stop Date Status Note LastModified by Organization Details LastModified Time prednisone 10 mg tablet TAKE 6 TABLETS BY MOUTH ON DAY 1, TAKE 5 TABS ON DAY 2 ,TAKE 4 TABS ON DAY 3, TAKE 3 TABS ON DAY 4 , TAKE 2 TABS ON DAY 5, THEN TAKE 1 TAB ON DAY 6 03/10 completed Not Available Not Available Not Available Depo-Medrol 40 mg/mL suspension for injection Take 1 mL by injection route. 08/13 completed Not Available Not Available Not Available clindamycin HCl 300 mg capsule take 1 capsule (300 mg) by oral route 2 times per day for 7 days 10/08 completed Not Available Not Available Not Available citalopram 40 mg tablet Take 1 tablet by mouth once daily active Not Available Not Available No t Available azithromyci n 250 mg tablet TAKE 2 TABLETS BY MOUTH ON DAY 1, THEN TAKE 1 TABLET DAILY ON DAYS 2-5 04/20 completed Not Available Not Available Not Available meloxicam 15 mg tablet TAKE 1 TABLET BY MOUTH ONCE DAILY NEEDED FOR PAIN 07/27 completed Not Available Not Available Not Available prednisone 20 mg tablet TAKE 2 TABLETS BY MOUTH EVERY DAY WITH MEAL(S) FOR 5 DAYS 04/20 completed Not Available Not Available Not Available fexofenadin e 180 mg tablet TAKE ONE TABLET BY MOUTH ONCE DAILY 2024 active Not Available Not Available Not Avai lable omeprazole 40 mg capsule,del ayed release TAKE ONE CAPSULE BY MOUTH EVERY DAY FOR heartburn 08/13 completed Not Available Not Available Not Available aspirin 81 mg tablet,christiano yed release Take 1 tablet(s) by mouth daily 2018 active Not Available Not Available Not Avai lable prednisone 10 mg tablets in a dose pack one dose pack by oral route as directed 03/10 completed Not Available Not Available Not Available Zofran 4 mg tablet Give 1 tablet every 6 hrs as needed for nausea and/or vomiting 08/02 completed Not Available Not Available Not Available oxycodone-a cetaminophe n 5 mg-325 mg tablet take 1 - 2 tablets by oral route every 4-6 hours as needed 04/07 completed Not Available Not Available Not Available ceftriaxone 1 gram solution for injection Take 1 g by injection route. 08/13 completed Not Available Not Available Not Available citalopram 20 mg tablet take 1 tablet (20 mg) by oral route once daily 09/30 completed Not Available Not Available Not Available doxycycline monohydrate 100 mg capsule Take 1 capsule twice a day by oral route with meals for 10 days. 10/04 completed Not Available Not Available Not Available oseltamivir 75 mg capsule TAKE 1 CAPSULE BY MOUTH TWICE DAILY FOR 5 DAYS 12/12 completed Not Available Not Available Not Available lisinopril 10 mg tablet Take 1 tablet by mouth daily 06/10 completed Not Available Not Available Not Available aspirin 81 mg chewable tablet chew 1 TABLET BY MOUTH EVERY DAY active Not Available Not Available No t Available lisinopril 10 mg-hydrochl orothiazide 12.5 mg tablet TAKE 1 TABLET BY MOUTH ONCE DAILY IN THE MORNING active Not Available Not Available No t Available methylpredn isolone 4 mg tablets in a dose pack take as directed ON package 08/31 completed Not Available Not Available Not Available Vitamin D2 1,250 mcg (50,000 unit) capsule Take 1 capsule every week by oral route. 08/13 completed Not Available Not Available Not Available bromphenira mine-pseudo ephedrine-D M 2 mg-30 mg-10 mg/5 mL oral syrup TAKE 5 ML BY MOUTH every 6 to 8 hours as needed for cough 08/13 completed Not Available Not Available Not Available ondansetron 4 mg disintegrat ing tablet DISSOLVE 1 TABLET IN MOUTH EVERY 8 HOURS NEEDED FOR NAUSEA AND VOMITING FOR 2 DAYS 04/09 completed Not Available Not Available Not Available cefdinir 300 mg capsule TAKE 1 CAPSULE BY MOUTH TWICE DAILY FOR 5 DAYS 04/09 completed Not Available Not Available Not Available fluticasone propionate 50 mcg/actuati on nasal spray,suspe nsion INSTILL TWO SPRAYS IN EACH NOSTRIL EVERY DAY 2024 active Not Available Not Available Not Avai lable loratadine 10 mg tablet TAKE 1 TABLET BY MOUTH ONCE DAILY 04/09 completed Not Available Not Available Not Available enoxaparin 40 mg/0.4 mL subcutaneou s syringe INJECT CONTENTS OF 1 SYRINGE SUBCUTANE OUSLY ONCE DAILY 07/27 completed Not Available Not Available Not Available Zetia 10 mg tablet Take 1 tablet(s) by mouth daily 07/27 completed Not Available Not Available Not Available cyclobenzap rine 5 mg tablet TAKE ONE TABLET BY MOUTH THREE TIMES DAILY NEEDED 10/04 completed Not Available Not Available Not Available rosuvastati n 5 mg tablet Take 1 tablet by mouth once daily active Not Available Not Available No t Available bupropion HCl XL 150 mg 24 hr tablet, extended release Take 1 tablet by mouth once daily. 10/04 completed Not Available Not Available Not Available Advair HFA 115 mcg-21 mcg/actuati on aerosol inhaler inhale 2 puffs by MOUTH twice daily 08/13 completed Not Available Not Available Not Available diclofenac 1 % topical gel APPLY 2 GRAMS TO THE AFFECTED AREA(S) BY TOPICAL ROUTE 4 TIMES PER DAY 04/20 completed Not Available Not Available Not Available prasugrel HCl 10 mg tablet TAKE ONE TABLET BY MOUTH EVERY DAY active Not Available Not Available No t Available ID NOW COVID-19 Test Kit TEST DIRECTED TODAY 07/27 completed Not Available Not Available Not Available Vitals Date Recorded Body height Body mass index (BMI) Body weight Body temperature Heart rate Oxygen saturation Systolic And Diastolic Provider Name and Address Organization Details Last Updated DateTime 5 170.18 cm 36.5 kg/m2 384147. 3 g 98.6 [degF] 75 /min 98 % 121/68 mm[Hg] CHENCHO [employer] 5 16:48:05 Date Recorded Body height Body mass index (BMI) Body weight Body temperature Heart rate Oxygen saturation Systolic And Diastolic Provider Name and Address Organization Details Last Updated DateTime 5 170.18 cm 36.1 kg/m2 759027. 96 g 98.6 [degF] 76 /min 97 % 111/65 mm[Hg] CHENCHO [employer] 5 16:05:47 Date Recorded Body height Body mass index (BMI) Body weight Heart rate Oxygen saturation Body temperature Systolic And Diastolic Provider Name and Address Organization Details Last Updated DateTime 5 170.18 cm 35.9 kg/m2 472317. 05 g 61 /min 99 % 98.7 [degF] 138/84 mm[Hg] Jessica Riddle [employer] 5 08:23:52 Date Recorded Body height Body mass index (BMI) Body weight Body temperature Heart rate Oxygen saturation Systolic And Diastolic Provider Name and Address Organization Details Last Updated DateTime 5 170.18 cm 34.7 kg/m2 030511. 79 g 97.8 [degF] 62 /min 98 % 124/56 mm[Hg] CHENCHO [employer] 5 11:02:10 Date Recorded Body height Body mass index (BMI) Body weight Heart rate Oxygen saturation Systolic And Diastolic Provider Name and Address Organization Details Last Updated DateTime 5 170.18 cm 34.3 kg/m2 81472.4 3 g 58 /min 98 % 89/55 mm[Hg] Monica Espinoza [employer] 5 11:04:07 Social History Question Answer Notes LastModified by Organizat ion Details LastModified Time Tobacco Smoking Status Never Smoker Margaret avilez [facility] [employer] 03/10/2023 16:13:24 Do You Have An Advance Directive? No Information n ot available 07/27/2022 Is Your Home Air Conditioned? Yes Information not available 07/27/2022 Do You Wear A Helmet When Biking? No [email or web address] Information not available 04/20/2025 Are You Blind Or Do You Have Difficulty Seeing? No Information n ot available 07/27/2022 In The 14 Days Before Symptom Onset, Have You Had Close Contact With A Laboratory-confirm ed COVID-19 While That Case Was Ill? No Information n ot available 07/27/2022 In The 14 Days Before Symptom Onset, Have You Had Close Contact With A Person Who Is Under Investigation For COVID-19 While That Person Was Ill? No Information not available 07/27/2022 Have You Been To An Area Known To Be High Risk For COVID-19? No Information not available 07/27/2022 Are You Deaf Or Do You Have Serious Difficulty Hearing? No Information not available 07/27/2022 What Type Of Diet Are You Following? REGULAR Information n ot available 07/27/2022 Have There Been Any Changes To Your Family Or Social Situation? No Information no t available 07/27/2022 Are There Any Guns Present In Your Home? No Information not available 07/27/2022 Do You Have A Medical Power Of Cloth Drier? No Information not available 07/27/2022 What Was The Date Of Your Most Recent Tobacco Screening? 09/12/2025 [email or web address] Information not available 09/12/2025 What Is Your Relationship Status? Information not available 07/27/2022 Do You Use Your Seat Belt Or Car Seat Routinely? Yes Information not available 07/27/2022 Do You Have Smoke And Carbon Monoxide Detectors In Your Home? Yes Information not available 07/27/2022 Are You Passively Exposed To Smoke? No Information no t available 07/27/2022 Are There Any Smokers In Your House? No Information not available 07/27/2022 Do You Participate In Social Media? Yes [email or web address] Information not available 04/20/2025 Do You Use Sunscreen Routinely? No Information not available 07/27/2022 Has Tobacco Cessation Counseling Been Provided? No Information not available 07/27/2022 Have You Recently Traveled Abroad? No Information not available 07/27/2022 Do You Have Difficulty Walking Or Climbing Stairs? No Information not available 03/10/2023 Are You Currently In School? No Information not available 07/27/2022 Do You Have Any Dietary Restrictions? No Information not available 07/27/2022 Sex: Female Functional Status Question Answer Note LastModified by Organizat ion Details LastModified Time Do you use any illicit or recreational drugs? No Information not available 07/27/2022 Do you or have you ever used any other forms of tobacco or nicotine? No Information not available 07/27/2022 What is your level of alcohol consumption? None Information not available 07/27/2022 Are you currently employed? No Information not available 07/27/2022 Do you have transportation difficulties? No Information not available 03/10/2023 Are you able to walk independently without assistance or assistive devices? [email or web address] Information not available 03/10/2023 Do you have difficulty doing errands alone? No Information not available 03/10/2023 Are you able to care for yourself independently? Yes Information not available 07/27/2022 Do you have difficulty dressing, bathing, grooming, or toileting? No Information not available 03/10/2023 Mental Status Question Answer Note LastModified by Organizat ion Details LastModified Time Do you feel stressed (tense, restless, nervous, or anxious, or unable to sleep at night)? [id number] [email or web address] Information not available 04/20/2025 Do you have difficulty concentrating, remembering or making decisions? No Information no t available 03/10/2023 Family History Relationship Description Onset Age of this Age Resolved Age Notes LastModified by Organization Details LastModified Time Mother Family history of Hypertension Relati ve: ''; [email or web address] Not available 07/27/2022 10:52:25 Unspecified Relation Family history of alcoholism Relati ve: ''; [email or web address] Not available 05/26/2022 22:55:19 Unspecified Relation Family history of hyperlipidem ia Relati ve: ''; [email or web address] Not available 05/26/2022 22:55:19 Unspecified Relation Family history of Myocardial infarction Relati ve: ''; [email or web address] Not available 05/26/2022 22:55:19 Notes:*Procedure Description : Documented family medical history in mother*Relative: Mother *Procedure Description: Documented family medical history in father*Relative: Father *Procedure Description: Family history of cerebrovascular accident*Relative: Unspecified Relation *Problem: Relative: ''; Medical History Condition Response Allergies (Food, seasonal, environmental ) Y Coronary Artery Disease N Other N Gout N Kidney Stones N Blood Diseases N Hyperthyroidism N Blood Transfusion N Breast Cancer N Emergency room visit since last appointm ent. N Hypothyroidism N Lung Disease N Dermatologic Disorders N Depression N COPD N Developmental or Behavioral Disorders N Defects or Inherited Disease N Breast Problem N Difficulty Swallowing N Anesthesia Complications N History of STI N Anxiety Disorder N Meniere's disease N Autoimmune disease N Muscle, Joint, or Bone Problems N Vision or Eye Problems N Arthritis Y Infertility N Polyps N Mental Disorder N Congenital Anomalies N Acid Reflux (GERD) N Cancer N Stroke N Neurologic/Epilepsy N Endometriosis N Bladder or Kidney Problems N High Cholesterol Y Liver Disease N Organ Transplant N Psychiatric/Mental Health Condition N Headaches N Schizophrenia N Fibromyalgia N Dialysis N Kidney Disease N Allergies/Hayfever N Heart Problems Y Ear or Hearing Problems N Hospitalizations N Learning Disorder N Artificial Joints N Thyroid Problems N GI Problems N Acne N ADD/ADHD N Eating Disorder N Anemia N Constipation N Mental Illness N Ovarian Cancer N Diabetes N Bedwetting N Hepatitis/Liver Disease N Tuberculosis N Eczema N Diverticulitis N Abuse/Domestic Violence N Asthma N Trauma/Violence N Substance Abuse N Reflux/GERD N Depression/ depression N Hepatitis N Heart Disease Y Pulmonary Embolism N Tourette Syndrome N Pre-Eclampsia N Hypertension Y Chronic Ear Infections N Osteoporosis N Chicken Pox N Autism Spectrum Disorder (ASD) N Thrombophilias N Gynecological History Statement/Question Response Date of Last Pap Smear Most Recent Mammogram 04/20/2022 Obstetrics History GPAL:G 0 P 0 0 0 0 Immunizations Vaccine Type Date Status Note Provider Nam e and Address Organization Details Recorded Time COVID-19, mRNA, LNP-S, PF, 30 mcg/0.3 mL dose 1 completed CHENCHO MYNEAR null, [employer] 07/27/2022 10:49:07 Influenza, split virus, quadrivalent, PF 1 completed CHENCHO MYNEAR null, [employer] 07/27/2022 10:49:07 Influenza, MDCK, quadrivalent, PF 1 completed CHENCHO MYNEAR null, [employer] 07/27/2022 10:49:07 Influenza, split virus, quadrivalent, preservative 9 completed CHENCHO MYNEAR null, [employer] 07/27/2022 10:49:07 Tdap 6 completed CHENCHO MYNEAR null, [employer] 07/27/2022 10:49:07 COVID-19, mRNA, LNP-S, PF, 30 mcg/0.3 mL dose 1 completed CHENCHO MYNEAR null, [employer] 07/27/2022 10:49:07 Influenza, split virus, quadrivalent, preservative 4 completed Margaret [place] null, [employer] 02/28/2024 14:35:23 TST-PPD intradermal 4 completed Margaret Aguila null, [employer] 02/28/2024 14:35:23 Hep B, adult 4 completed Margaret Aguila null, [employer] 02/28/2024 14:35:23 Influenza, split virus, trivalent, PF 5 completed Monica Espinoza null, [employer] 09/12/2025 11:38:14 Past Encounters Encounter ID Performer Location Encounter Start Date Encounter Closed Date Diagnosis/Indication Diagnosis SNOMED-CT Code Diagnosis ICD10 Code Diagnosis IMO Codes Diagnosis Note [id number] Chela Ferrell [place] [address] 07/27/2022 10:37:55 07/27/2022 11:21:47 Upper respiratory infection 39752725 J06.9 Acute sero us otitis media of right ear 1235463527 591197 H65.01 Complete the antibiotic s, continue daily Flonase and antihistam ine tablet. [id number] Charley Schaffer [place] [address] 08/01/2022 08:02:18 08/01/2022 08:35:03 Acute serous otitis media of bilateral ears 3550045665 683101 H65.03 Advised to use flonase 2 sprays in each nostril BID. Pt verbalized understand ing. If symptoms worsen or fever RTC. [id number] Chela Ferrell [place] [address] 0 10/06/2022 08:54:32 10/06/2022 09:45:22 Benign essential hypertension 6433986 I10 DASH diet, emphasized good BP control, hydration, avoid NSAIDS, Chronic ki dney disease stage 2 052773783 N18.2 Generalize d anxiety disorder 23958698 F41.1 Mixed hyperlipidemia 267 596112 E78.2 Vitamin D deficiency 347 99562 E55.9 Mild recur rent major depression 59724140 F33.0 Acute sero us otitis media of right ear 2882597706 723305 H65.01 Complete the antibiotic s, continue daily Flonase and antihistam ine tablet. Body mass index 30+ - obesity 423868660 Z68.34 [id number] Chela Ferrell [place] [address] 0 11/04/2022 13:46:29 11/04/2022 15:03:00 Acute upper respiratory infection 77652191 J06.9 Patient presented with symptoms of upper respirator y infection. Advised to drink plenty of fluids, run a cool-mist humidifier in room at night, gargle salt water for sore throat, and get plenty of rest. Patient should avoid over-exert ion and reduce exposure to irritants such as smoke, cold, dry air, and dust. Treatment currently involves symptomati c relief. Patient may take acetaminop hen or ibuprofen as directed to reduce fever and body aches. Antihistam ine and decongesta nt usage was discussed and recommenda tions made. Patient understood these instructio ns and will follow up in the office in 10 days to 2 weeks if symptoms not improving. [id number] [place] [address] 12/04/2022 15:28:38 12/04/2022 15:45:59 Acute bilateral otitis media 480765948 H66.93 [id number] [place] [address] 01/22/2023 11:13:18 01/22/2023 12:05:08 Right side sciatica 0275040138 21635 M54.31 Rest, ice, stretches emphasized . She is not a candidate for oral NSAIDs due to stable chronic kidney disease. Pain in left foot 984498 6897 88568 M79.672 Obtain x-ray. Use of foot orthotics in her shoes and ice were recommende d. She may require referral to podiatry. [id number] [place] [id number] 03/10/2023 16:02:40 03/10/2023 16:56:15 Cough 10649188 R05.9 Acute sinusitis 24231492 J01.90 Patient likely has an acute bacterial sinusitis. Will treat as below. No signs of preseptal or orbital cellulitis , meningismu s, or neurologic changes concerning for intracrani al process. Instructed family to monitor patient closely and call office for any of these symptoms. Supportive care reviewed: raising HOB, humidifier use, saline nasal spray, rest, encourage PO fluids and monitor hydration status, infection control measures. Recommende d acetaminop hen/ibupro fen PRN pain, fever; reviewed appropriat e doses. Follow-up as below. [id number] Chela Ferrell [place] [address] 0 04/02/2023 09:01:57 04/02/2023 10:14:25 Adult health examination 429873635 Z00.00 Benign ess ential hypertension 8919201 I10 DASH diet, emphasized good BP control, hydration, avoid NSAIDS, Chronic ki dney disease stage 2 857820294 N18.2 Generalize d anxiety disorder 04367557 F41.1 Add Wellbutrin 150 mg ER Mixed hyperlipidemia 267 154147 E78.2 Seasonal a llergic rhinitis 752946137 J30.2 Start Angela and continue Flonase Body mass index 30+ - obesity 691894872 Z68.34 Healthy diet and exercise encouraged . [id number] Chela Ferrell [place] [address] 0 08/03/2023 14:46:42 08/03/2023 16:18:35 Low back pain 342437373 M54.50 Rest, ice, stretches, proper body mechanics discussed. [id number] [place] [address] 08/31/2023 14:58:26 08/31/2023 16:09:42 Acute upper respiratory infection 74354742 J06.9 Patient presented with symptoms of upper respirator y infection. Advised to drink plenty of fluids, run a cool-mist humidifier in room at night, gargle salt water for sore throat, and get plenty of rest. Patient should avoid over-exert ion and reduce exposure to irritants such as smoke, cold, dry air, and dust. Treatment currently involves symptomati c relief. Patient may take acetaminop hen or ibuprofen as directed to reduce fever and body aches. Antihistam ine and decongesta nt usage was discussed and recommenda tions made. Patient understood these instructio ns and will follow up in the office in 10 days to 2 weeks if symptoms not improving. Acute left otitis media 235243712 H66.92 Patient presents with signs/symp toms of otitis media. Will treat as below. Supportive care reviewed: humidifier use, raise HOB, saline nasal spray, encourage PO fluids. Recommende d acetaminop hen PRN pain/fever Follow up as below. Continue flonase. [id number] [place] [address] 0 10/04/2023 08:57:30 10/04/2023 10:33:27 Benign essential hypertension 2818793 I10 DASH diet, emphasized good BP control, hydration, avoid NSAIDS, Generalize d anxiety disorder 80515901 F41.1 Contimnue Celexa. Mixed hyperlipidemia 267 004688 E78.2 Continue statin. Vitamin D deficiency 347 43817 E55.9 Diabetes m ellitus screening 525221052 Z13.1 Body mass index 30+ - obesity 699802043 Z68.34 Healthy diet and exercise encouraged . Screening mammography of bilateral breasts 8865968716 84975 Z12.31 Gastroesop hageal reflux disease without esophagitis 064845992 K21.9 Start Prilosec 60 day trial. GERD lifestyle and dietary modificati on discussed with pt. [id number] Quin Rome [place] [address] 0 02/28/2024 14:29:30 02/28/2024 14:58:01 Acute left otitis media 142083815 H66.92 [id number] Chela Ferrell [place] [address] 0 04/28/2024 07:57:02 04/28/2024 08:31:48 Pain in pelvis 75473538 R10.2 RLQ pain x 6 months - obtain Transvag US. If that is NML, consider CT abd and colonoscop y. [id number] [place] [address] 10/23/2024 15:58:20 10/23/2024 16:47:43 Cough 15702569 R05.9 Inflamed s eborrheic keratosis [id number] L82.0 Acute left otitis media [id number] H66.92 Patient presents with signs/symp toms of otitis media. Will treat as below. Supportive care reviewed: humidifier use, raise HOB, saline nasal spray, encourage PO fluids. Recommende d acetaminop hen PRN pain/fever Follow up as below. Continue flonase. [id number] Chela Ferrell [place] [address] 12/12/2024 16:40:13 12/12/2024 17:49:47 Right sided chest pain [id number] R07.89 with intermitte nt dyspnea, Hx PE in 2017. Right uppe r quadrant pain 151654062 R10.11 [id number] Chela Ferrell [place] [address] 04/09/2025 15:56:14 04/09/2025 16:27:27 Acute sinusitis 71147196 J01.90 [id number] Patient likely has an acute bacterial sinusitis. Will treat as below.No signs of preseptal or orbital cellulitis , meningismu s, or neurologic changes concerning for intracrani al process. Instructed family to monitor patient closely and call office for any of these symptoms.S upportive care reviewed: raising HOB, humidifier use, saline nasal spray, rest, encourage PO fluids and monitor hydration status, infection control measures.R ecommended acetaminop hen/ibupro fen PRN pain, fever; reviewed appropriat e doses.Foll ow-up as below.Cont inue flonase and Angela daily. [id number] Chela Ferrell [place] [address] 04/20/2025 07:55:35 04/20/2025 09:36:47 Persistent cough 231099217 R05.3 421286 Acute lowe r respiratory tract infection 451581130 J22 1071243 [id number] Chela Ferrell [place] [address] 08/13/2025 10:44:47 08/13/2025 11:47:04 Fatigue 28484835 R53.83 4832398 Paresthesia 53987578 R20 .2 48393 Diabetes m ellitus screening 403370079 Z13.1 52933 Body mass index 30+ - obesity 043123163 Z68.34 07066995 Healthy diet and exercise encouraged . Chest pain 63790465 R07. 9 33497173 Snoring 82920271 R06.83 98781 Mixed hyperlipidemia 267 798196 E78.2 Continue statin. Essential hypertension 27680618 I10 Mixed anxi ety and depressive disorder 595011160 F41.8 [id number] Chela Ferrell[address] [address] 09/12/2025 10:53:31 09/12/2025 11:37:44 Coronary arteriosclerosis 51533111 I25.10 0481442 Influenza vaccination given [id number] 9109 Z23 40320096 Health Concerns Section Related Observation LastModified by Organization Detai ls LastModified Time None Recorded Concern Status LastModified by Organization Details LastModified Time None Recorded Advance Directives Directive N: Payers Insurance Date Sequence Insurance Name Policy Number Policy Solano Covered Member ID Solano Member ID Guarantor Name 09/14/2025 SLIDING FEE SCHEDULE - DISCOUNT Tasia Alexis 08/13/2025 1 [facility] (MEDICAID HMO) Tasia Alexis [id number] Tasia Alexis 08/13/2025 1 [facility] (MEDICARE REPLACEMENT/ ADVANTAGE - HMO) Tasia Alexis [id number] Tasia Alexis 09/09/2025 1 [employer] [facility] (HMO) Tasia Alexis [id number] Tasia Alexis 09/14/2025 SLIDING FEE SCHEDULE - DISCOUNT Tasia Alexis 08/13/2025 1 [employer] [facility] (MEDICAID HMO) Tasia Alexis [id number] Tasia Alexis Notes Date Note Type Note Provider Name and Address Organization Details Recorded Time 5 text/html Abdominal PainReported by PatientAbdominal PainFor quality, patient reportssharpandtender. For severity, patient reportsworsebut reportsmoderate. For associated symptoms, patient reportsheartburn,shortne ss of breath,diarrhea,changes in stool, andexertional dyspneabut reportsno fever,no chills,no blood in the urine,no nausea,no vomiting,no constipation,normal stool,no blood in stool,normal appetite,no jaundice,no dysuria,no fatigue,no weight loss,no cough, andno urinary frequency. For location, patient reportsruqandradiating(t o right scapula). For duration, patient reportsintermittent. For onset/timing, patient reportsacute,started: (5 days ago), andsudden. For aggravating factors, patient reportsmovement(inspirat ion). For other, patient reportsdenies possible . For previous tests, treatment and/or diagnostic procedures, patient reportsotc medications.Last colonoscopy was 3-5 years ago. Does have hx of splenic aneurysm followed by [facility] annually.ROS as noted in the HPI Patient complains of a 5-day history of right upper quadrant abdominal and right chest wall pain that radiates to the right scapula intermittently. She denies fevers nausea and vomiting. She does complain of increased shortness of breath without cough or hemoptysis. She denies fevers. She does complain of increased reflux symptoms with loose stools postprandially for the past 2 weeks. She does still have her gallbladder. She also has a history of pulmonary embolus in 2017. Differential diagnosis includes cholecystitis or pulmonary embolus, or atypical pneumonia. Chela Ferrell APRN [address] [place] [address], [phone], [facility] [employer] 12/12/2024 17:41:20 5 text/html CoughReported by PatientHPIFor severity, patient reportsworseningbut reportsmoderate. For associated symptoms, patient reportssputum production,throat clearing,nasal discharge, andtirednessbut reportsno fever,no chills,no chest pain,no heartburn,no nausea,no vomiting,no edema,no agitation,no wheezing,no chest wall tenderness, andno shortness of breath. For quality, patient reportsproductive. For duration, patient reportssubacute (3-8 weeks). For onset/timing, patient reportsgradualandbecomes worse as the day goes on. For context, patient reportsnon-smoker. For modifying factors, patient reportsotc medication.ROS as noted in the HPI Chela Ferrell, [employer] [place], [address], [employer] 04/09/2025 17:45:44 5 text/html CoughReported by PatientHPIFor severity, patient reportsworseningbut reportsmoderate. For associated symptoms, patient reportssputum production,throat clearing,nasal discharge, andtirednessbut reportsno fever,no chills,no chest pain,no heartburn,no nausea,no vomiting,no edema,no agitation,no wheezing,no chest wall tenderness, andno shortness of breath. For quality, patient reportsproductive. For duration, patient reportssubacute (3-8 weeks). For onset/timing, patient reportsgradualandbecomes worse as the day goes on. For context, patient reportsnon-smoker. For modifying factors, patient reportsotc medication.ROS as noted in the [facility] Chela Ferrell, [address] [place], [address], [employer] 05/21/2025 18:39:34 5 text/html ROS as noted in the [facility] Chief ComplaintFatigue for a few months despite sleeping, numbness in arms and hands, tingling in the bottoms of feet, two episodes of radiating chest pain in the past couple of months (once at rest in synagogue and once while carrying cat food)History of Present IllnessTasia Alexis presents with chronic fatigue lasting several months, accompanied by numbness in her arms and hands, tingling in the bottoms of her feet, and two episodes of radiating chest pain over the past couple of months.The patient reports feeling tired all the time despite sleeping, describing this fatigue as ongoing for a few months. She experiences numbness in her arms and hands, along with tingling sensations specifically in the bottoms of her feet. She states she just doesn't feel right overall.Regarding chest pain episodes, the first occurred a couple of months ago while at synagogue, described as awful pain that radiated into her left arm but resolved spontaneously. The second episode happened last week while carrying cat food, causing really bad pain in the same location. During the second episode, she had forgotten to take her blood pressure medication and felt better after sitting down and taking her medicine. She noted her blood pressure was elevated that day and wondered if eating potato chips might have contributed, though she continues to feel unwell.The patient reports significant snoring that her partner Moy describes as being able to raise the roof. She experiences some swelling in her feet and ankles when not taking her medication, though this resolves with medication compliance. She attributes some swelling to being on her feet frequently at work.Regarding medication adherence, she is not currently taking aspirin but indicates willingness to resume it. She takes her statin more often than not but dislikes taking it at night because it keeps her awake. She continues taking Celexa for mood, though questions whether she still needs it. She reports poor appetite, stating she doesn't feel hungry due to fatigue.The patient had to cancel her annual follow-up appointment and scan for her splenic aneurysm in April due to insurance lapse and needs to reschedule. Chela Ferrell, [employer] [address] [facility], [place], [id number], [facility] [employer], [facility]. 08/13/2025 12:40:45 5 text/html ROS as noted in the HPI Chief ComplaintFollow-up after cardiac catheterization with stent placement on September 04, ongoing chest pressureHistory of Present IllnessTasia Alexis is a female patient with established cardiac disease who presents for follow-up after recent cardiac catheterization and stent placement on September 04, 2025.The patient underwent left heart catheterization with placement of one drug-eluting stent in the LAD (left anterior descending artery) after presenting with chest symptoms. She reports continuing to experience chest pressure since the procedure, though she was told this would subside. The pressure is not radiating down her arm. She describes that prior to her cardiac intervention, she was experiencing pressure symptoms that she knew something wasn't right, though others suggested she was having panic attacks. She states she has had panic attacks before and knew these symptoms felt different.Since the stent placement, the patient returned to work yesterday for the first time. 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 She attributes this to still healing from the intervention. She denies swelling in her feet and ankles.The patient is currently taking Effient and aspirin as prescribed after the stent placement. She has a history of statin intolerance over the years and is taking Crestor 5 milligrams daily, though ideally would benefit from a higher dose given her established cardiac disease. She had an echocardiogram scheduled for next Wednesday (September 18) due to slightly decreased ejection fraction noted during the catheterization. She saw cardiology yesterday for follow-up.A sleep study has been ordered but has not yet been completed due to equipment availability, with the sleep study company waiting for a unit to become available. Chela Ferrell, [employer] [facility], [place], [address], [facility] [employer] 09/12/2025 12:51:35 OBGyn Episode No OBEpisode recorded.
--- OUTSIDE RECORDS SUMMARY | 2025-09-18 07:57 | XMS_ITS | Clinical Summary ---
Author Organization [facility] Address [address] [place] [address] Care Team Providers Care Environmental Health Officer Name Role Phone FerrellChela macario EMELY Primary Care Provider [phone] Allergies Active Allergy Reactions Criticality Noted Date [...] of 2) 2014 [facility]-Depression Screening 05/12/2022 05/12/2021 [id number] Vaccine (3 - season) 2025 01/25/2021, 12/31/2020 [...] age to complete this topic Care Teams Environmental Health Officer Relationship Specialty Start Date End Date Chela Ferrell APRN [id number] PCP - General 01/31/21
--- OUTSIDE RECORDS SUMMARY | 2025-09-18 07:57 | XMS_ITS | Continuity of Care Document ---
Author Organization [place] - [employer] [facility] Address [address] [place] [address] Assessment Encounter Date Assessment Date Assessment LastModified by Organization Details LastModified Time 08/13/2025 08/13/2025 Tasia Alexis presented with several [...] splenic aneurysm follow-up. Not available 08/13/2025 12:38:07 Plan of Treatment Reminders Order Date Submit Date Provider Last Modified By Organization Details Last Modified Time Details Appointments None recorded. Lab lipid panel, serum 2024 025 [employer] [facility]), [address] [place] [address], [address], 5 07:09:06 CBC w/ auto diff 2024 025 [place] [facility] [address] [place] [address], [address], 5 07:09:05 CMP, serum or plasma 2024 025 [facility] [address] [place], [address], 5 07:09:05 TSH + free T4, serum 2024 025 [facility]), [address] [place], [address], 5 07:09:04 cobalamin and folate panel, serum 2024 025 [facility]), [address] [place], [address], 5 07:09:06 magnesium, serum or plasma 2024 [facility]), [address] [place], [address], 5 07:09:07 vitamin D, 25-hydroxy, total, serum 2024 025 [facility]), [address] [place], [address], 5 07:09:07 HbA1c (hemoglobin A1c), blood 2024 [facility]), [address] [place] [address], [address], 5 07:09:07 Referral cardiologis t referral - HERMES please 2024 [facility], [address], [place], [address], 5 16:46:07 Procedures None recorded. Surgeries None recorded. Imaging home sleep study 2024 [facility], [address] [facility], [address], [place], [address], 5 04:13:00 Medication Orders rosuvastati n 5 mg tablet 2024 [facility], [address] [place] [address], [address], 13:47:08 citalopram 40 mg tablet 2024 [facility], [address] [place] [address], [address], 13:47:06 lisinopril 10 mg-hydrochl orothiazide 12.5 mg tablet 2024 025 [facility], [address] [place] [address], [address], 13:47:07 Patient TargetsNo targets recorded. Patient InstructionsNo instructions recorded. 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 HERMES please Referring Physician: Chela Ferrell, Family Medicine, Encounter Date: 08/13/2025 Results Created Date Observation Date Name Description Value Unit Range Abnormal Flag Note LastModifiedBy Organization Detail LastModifiedTime 08/13/2008/14/2025 TSH+F REE T4 TSH 1.670 uIU/m L 0.450- 4.500 normal Not Available [facility] ([facility]) [address] [place], [address], 08/14/2025 07:09:04 08/13/2008/14/2025 TSH+F REE T4 T4,free(dire ct) 1.27 NG/dL 0.82-1 .77 normal Not Available [facility] ([facility]) [address] [place], [address], 08/14/2025 07:09:04 08/13/2008/14/2025 CBC WITH DIFFE RENTI AL/PL ATELE T WBC 3.6 x10e3 /uL 3.4-10 .8 normal Not Available [facility] ([facility]) [address] [place], [address], 08/14/2025 07:09:05 08/13/2008/14/2025 CBC WITH DIFFE RENTI AL/PL ATELE T RBC 4.85 x10e6 /uL 3.77-5 .28 normal Not Available [facility] ([facility]) [address] [place], [address], 08/14/2025 07:09:05 08/13/2008/14/2025 CBC WITH DIFFE RENTI AL/PL ATELE T hemoglobin 13.4 g/dL 11.1-1 5.9 normal Not Available [facility] ([facility]) [address] [place], [address], 08/14/2025 07:09:05 08/13/2008/14/2025 CBC WITH DIFFE RENTI AL/PL ATELE T hematocrit 42.5 % 34.0-4 6.6 normal Not Available [facility] ([facility]) [address] [place], [address], 08/14/2025 07:09:05 08/13/2008/14/2025 CBC WITH DIFFE RENTI AL/PL ATELE T MCV 88 fL 79-97 normal Not Available [facility] ([facility]) [address] [place], [address], 08/14/2025 07:09:05 08/13/2008/14/2025 CBC WITH DIFFE RENTI AL/PL ATELE T MCH 27.6 pg 26.6-3 3.0 normal Not Available [facility] ([facility]) [address] [place], [address], 08/14/2025 07:09:05 08/13/2008/14/2025 CBC WITH DIFFE RENTI AL/PL ATELE T MCHC 31.5 g/dL 31.5-3 5.7 normal Not Available [facility] ([facility]) [address] [place], [address], 08/14/2025 07:09:05 08/13/2008/14/2025 CBC WITH DIFFE RENTI AL/PL ATELE T RDW 11.6 % 11.7-1 5.4 below low normal Not Available [facility] ([facility]) [address] [facility], [place], [address], 08/14/2025 07:09:05 08/13/2008/14/2025 CBC WITH DIFFE RENTI AL/PL ATELE T platelets 232 x10e3 /uL 150-45 0 normal Not Available [facility] ([facility]) [address] [facility], [place], [address], 08/14/2025 07:09:05 08/13/2008/14/2025 CBC WITH DIFFE RENTI AL/PL ATELE T neutrophils 52 % not estab. normal Not Available [facility] ([facility]) [address] [facility], [place], [address], 08/14/2025 07:09:05 08/13/2008/14/2025 CBC WITH DIFFE RENTI AL/PL ATELE T lymphs 33 % not estab. normal Not Available [facility] ([facility]) [address] [facility], [place], [address], 08/14/2025 07:09:05 08/13/2008/14/2025 CBC WITH DIFFE RENTI AL/PL ATELE T monocytes 9 % not estab. normal Not Available [facility] ([facility]) [address] [facility], [place], [address], 08/14/2025 07:09:05 08/13/2008/14/2025 CBC WITH DIFFE RENTI AL/PL ATELE T eos 5 % not estab. normal Not Available [facility] ([facility]) [address] [facility], [place], [address], 08/14/2025 07:09:05 08/13/2008/14/2025 CBC WITH DIFFE RENTI AL/PL ATELE T basos 1 % not estab. normal Not Available [facility] ([facility]) [address] [place], [address], 08/14/2025 07:09:05 08/13/2008/14/2025 CBC WITH DIFFE RENTI AL/PL ATELE T immature cells PALLIATIVE CARE PHYSICIAN Not Available [facility] ([facility]) [address] [place], [address], 08/14/2025 07:09:05 08/13/2008/14/2025 CBC WITH DIFFE RENTI AL/PL ATELE T neutrophils (absolute) 1.8 x10e3 /uL 1.4-7. 0 normal Not Available [facility] ([facility]) [address] [place], [address], 08/14/2025 07:09:05 08/13/2008/14/2025 CBC WITH DIFFE RENTI AL/PL ATELE T lymphs (absolute) 1.2 x10e3 /uL 0.7-3. 1 normal Not Available [facility] ([facility]) [address] [place], [address], 08/14/2025 07:09:05 08/13/2008/14/2025 CBC WITH DIFFE RENTI AL/PL ATELE T monocytes(ab solute) 0.3 x10e3 /uL 0.1-0. 9 normal Not Available [facility] ([facility]) [address] [place], [address], 08/14/2025 07:09:05 08/13/2008/14/2025 CBC WITH DIFFE RENTI AL/PL ATELE T eos (absolute) 0.2 x10e3 /uL 0.0-0. 4 normal Not Available [facility] ([facility]) [address] [place], [address], 08/14/2025 07:09:05 08/13/2008/14/2025 CBC WITH DIFFE RENTI AL/PL ATELE T baso (absolute) 0.0 x10e3 /uL 0.0-0. 2 normal Not Available [facility] ([facility]) [address] [facility], [place], [address], 08/14/2025 07:09:05 08/13/2008/14/2025 CBC WITH DIFFE RENTI AL/PL ATELE T immature granulocytes 0 % not estab. Not Available [facility] ([facility]) [address] [facility], [place], [address], 08/14/2025 07:09:05 08/13/2008/14/2025 CBC WITH DIFFE RENTI AL/PL ATELE T immature grans (abs) 0.0 x10e3 /uL 0.0-0. 1 Not Available [facility] ([facility]) [address] [facility], [place], [address], 08/14/2025 07:09:05 08/13/2008/14/2025 CBC WITH DIFFE RENTI AL/PL ATELE T NRBC PALLIATIVE CARE PHYSICIAN Not Available [facility] ([facility]) [address] [facility], [place], [address], 08/14/2025 07:09:05 08/13/2008/14/2025 CBC WITH DIFFE RENTI AL/PL ATELE T hematology comments: PALLIATIVE CARE PHYSICIAN Not Available [facility] ([facility]) [address] [facility], [place], [address], 08/14/2025 07:09:05 08/13/2008/14/2025 COMP. METAB OLIC PANEL (14) glucose 88 mg/dL 70-99 normal Not Available [facility] ([facility]) [address] [place], [address], 08/14/2025 07:09:05 08/13/2008/14/2025 COMP. METAB OLIC PANEL (14) BUN 19 mg/dL 8-27 normal Not Available [facility] ([facility]) [address] [place], [address], 08/14/2025 07:09:05 08/13/2008/14/2025 COMP. METAB OLIC PANEL (14) creatinine 1.08 mg/dL 0.57-1 .00 above high normal Not Available [facility] ([facility]) [address] [place], [address], 08/14/2025 07:09:05 08/13/2008/14/2025 COMP. METAB OLIC PANEL (14) eGFR 59 mL/mi n/1.7 3 >59 below low normal Not Available [facility] ([facility]) [address] [place], [address], 08/14/2025 07:09:05 08/13/2008/14/2025 COMP. METAB OLIC PANEL (14) BUN/creatini ne ratio 18 12-28 normal Not Available [facility] ([facility]) [address] [place], [address], 08/14/2025 07:09:05 08/13/2008/14/2025 COMP. METAB OLIC PANEL (14) sodium 138 mmol/ L 134-14 4 normal Not Available [facility] ([facility]) [address] [place], [address], 08/14/2025 07:09:05 08/13/2008/14/2025 COMP. METAB OLIC PANEL (14) potassium 4.5 mmol/ L 3.5-5. 2 normal Not Available [facility] ([facility]) [address] [place], [address], 08/14/2025 07:09:05 08/13/20 25 08/14/2025 COMP. METAB OLIC PANEL (14) chloride 99 mmol/ L 96-106 normal Not Available [facility] ([facility]) [address] [place], [address], 08/14/2025 07:09:05 08/13/2008/14/2025 COMP. METAB OLIC PANEL (14) carbon dioxide, total 25 mmol/ L 20-29 normal Not Available [facility] ([facility]) [address] [place], [address], 08/14/2025 07:09:05 08/13/2008/14/2025 COMP. METAB OLIC PANEL (14) calcium 9.4 mg/dL 8.7-10 .3 normal Not Available [facility] ([facility]) [address] [place], [address], 08/14/2025 07:09:05 08/13/2008/14/2025 COMP. METAB OLIC PANEL (14) protein, total 6.6 g/dL 6.0-8. 5 normal Not Available [facility] ([facility]) [address] [facility] [place], [address], 08/14/2025 07:09:05 08/13/2008/14/2025 COMP. METAB OLIC PANEL (14) albumin 4.3 g/dL 3.8-4. 9 normal Not Available [facility] ([facility]) [address] [facility] [place], [address], 08/14/2025 07:09:05 08/13/2008/14/2025 COMP. METAB OLIC PANEL (14) globulin, total 2.3 g/dL 1.5-4. 5 Not Available [facility] ([facility]) [address] [facility] [place], [address], 08/14/2025 07:09:05 08/13/2008/14/2025 COMP. METAB OLIC PANEL (14) bilirubin, total 0.5 mg/dL 0.0-1. 2 normal Not Available [facility] ([facility]) [address] [facility] [place], [address], 08/14/2025 07:09:05 08/13/2008/14/2025 COMP. METAB OLIC PANEL (14) alkaline phosphatase 115 IU/L 49-135 normal Not Available [facility] ([facility]) [address] [facility] [place], [address], 08/14/2025 07:09:05 08/13/2008/14/2025 COMP. METAB OLIC PANEL (14) AST (SGOT) 17 IU/L 0-40 normal Not Available [facility] ([facility]) [address] [place], [address], 08/14/2025 07:09:05 08/13/2008/14/2025 COMP. METAB OLIC PANEL (14) ALT (SGPT) 14 IU/L 0-32 normal Not Available [facility] ([facility]) [address] [place], [address], 08/14/2025 07:09:05 08/13/2008/14/2025 LIPID PANEL cholesterol, total 212 mg/dL 100-19 9 above high normal Not Available [facility] ([facility]) [address] [place], [address], 08/14/2025 07:09:06 08/13/2008/14/2025 LIPID PANEL triglyceride s 91 mg/dL 0-149 normal Not Available [facility] ([facility]) [address] [place], [address], 08/14/2025 07:09:06 08/13/2008/14/2025 LIPID PANEL HDL cholesterol 61 mg/dL >39 normal Not Available [facility] ([facility]) [address] [place], [address], 08/14/2025 07:09:06 08/13/2008/14/2025 LIPID PANEL VLDL cholesterol sydney 16 mg/dL 5-40 Not Available [facility] ([facility]) [address] [place], [address], 08/14/2025 07:09:06 08/13/2008/14/2025 LIPID PANEL LDL chol calc ([facility]) 135 mg/dL 0-99 above high normal Not Available [facility] ([facility]) [address] [place], [address], 08/14/2025 07:09:06 08/13/2008/14/2025 LIPID PANEL LDL calc comment: PALLIATIVE CARE PHYSICIAN Not Available [facility] ([facility]) [address] [facility], [place], [address], 08/14/2025 07:09:06 08/13/2008/14/2025 VITAM IN B12 AND FOLAT E vitamin B12 379 pg/mL 232-12 45 normal Not Available [facility] ([facility]) [address] [place], [address], 08/14/2025 07:09:06 08/13/2008/14/2025 VITAM IN B12 AND FOLAT E folate (folic acid), serum 3.9 NG/mL >3.0 normal A serum folat e quoc ntrat ion of less than 3.1 ng/mL is consi dered to repre sent clini sydney defic iency . Not Available [facility] ([facility]) [address] [place], [address], 08/14/2025 07:09:06 08/13/2008/14/2025 HEMOG LOBIN A1C hemoglobin A1C 5.5 % 4.8-5. 6 normal Predi abete s: 5.7 - 6.4 Diabe nelson: >6.4 Glyce kristen contr ol for adult s with diabe nelson: <7.0 Not Available [facility] ([facility]) [address] [place], [address], 08/14/2025 07:09:07 08/13/20 25 08/14/2025 VITAM IN [...] Endoc rine Socie ty went on to fur er defin e vitam in D insuf ficie ncy as a level betwe en 21 and 29 ng/mL (2). 1. IOM (Inst itute of Medic ine). 2009. Dieta ry refer ence intak es for calci um and D. Vel de la garza [place]: The [facility] . 2. Salvador garibay [place], Yi duckworth [place], Alfreda off-F andrewar i RAMIREZ, et al. Evalu ation , treat ment, and preve ntion of vitam in D defic iency : an Endoc rine Socie ty clini [place] pract ice guide line. JCEM. 2010; 96(7) :1911 -30. Not Available [facility] ([facility]) [address] [facility], [place], [address], 08/14/2025 07:09:07 08/13/20 25 08/14/2025 MAGNE SIUM magnesium 2.3 mg/dL 1.6-2. 3 normal Not Available [facility] ([facility]) [address] [facility], [place], [address], 08/14/2025 07:09:07 Result Notes None recorded. Problems Name Problem SNOMED Code Status Onset Date Resolution Date Notes Provider Name and Address Organization Details Recorded Time Mixed hyperlip idemia 944622971 Active 2017 Problem Code: E78.2; Problem Code Type: ICD-10; Not Available [employer] 22:26:54 Hyperten sive disorder 37455533 Active 2017 Problem Code: I10; Problem Code Type: ICD-10; Not Available [facility] 22:26:54 Polyp of colon 66457729 Completed 201707/27/2022 Problem Code: K63.5; Problem Code Type: ICD-10; CHENCHO avilez [facility] [employer] 10:51:16 Idiopath ic osteoart hritis 925598450 Completed 201709/24/2018 Problem Code: M17.0; Problem Code Type: ICD-10; Not Available [facility] 22:26:55 Body mass index 30+ - obesity 325393706 Completed 201710/14/2020 Problem Code: Z68.33; Problem Code Type: ICD-10; Not Available [facility] 22:26:59 Osteoart hritis of knee 896303804 Completed 201709/24/2018 Not Available [facility] 22:27:01 Left carotid artery occlusio n 10381769927 9105 Completed 201708/22/2018 Not Available [facility] 22:26:54 Precordi al pain 28832046 Completed 201708/22/2018 Problem Code: R07.2; Problem Code Type: ICD-10; Not Available [facility] 22:26:56 Nausea 792332075 Completed 201707/07/2018 Problem Code: R11.0; Problem Code Type: ICD-10; Not Available [facility] 22:26:56 Carotid artery occlusio n 453640699 Completed 201708/22/2018 Problem Code: 433.10; Problem Code Type: ICD-9; Not Available [facility] 22:27:00 Vitamin D deficien 51990062 Active 2018 Problem Code: E55.9; Problem Code Type: ICD-10; Not Available [facility] 22:26:54 Pain in left foot 05671284243 9107 Completed 201804/12/2019 Problem Code: M79.672; Problem Code Type: ICD-10; Chela Mariaelena, CONTENT PRODUCTION SPECIALIST [address] [place], [address] , [employer] 5 17:06:29 Pain in limb 21682637 Completed 201807/27/2022 Problem Code: 729.5; Problem Code Type: ICD-9; CHENCHO TREENEAR null, [employer] 2 10:51:16 Screenin carmela mammogra phy Completed 201811/23/2018 Problem Code: V76.12; Problem Code Type: ICD-9; CHENCHO TREENEAR null, [employer] 2 10:51:16 Strain of left Achilles tendon 20098808954 822853 Completed 201804/12/2019 Not Available [facility] 2 22:26:57 Sprain of distal tibiofib ular ligament 87897953 Completed 201807/27/2022 Problem Code: S93.432A ; Problem Code Type: ICD-10; CHENCHO TREENEAR null, [employer] 2 10:51:16 Generali zed anxiety disorder 03626581 Active 2018 Problem Code: F41.1; Problem Code Type: ICD-10; Not Available [facility] 2 22:26:56 Injury of Achilles tendon 870725617 Completed 201807/27/2022 Problem Code: S86.001S ; Problem Code Type: ICD-10; CHENCHO TREENEAR null, [employer] 2 10:51:16 General examinat ion of patient Completed 201907/27/2022 CHENCHO TREENEAR null, [employer] 2 10:51:16 Body mass index 30+ - obesity 068029523 Active 2019 Problem Code: Z68.32; Problem Code Type: ICD-10; Not Available [facility] 2 22:26:59 Benign neoplasm of skin of eyelid 51878918 Completed 201907/27/2022 Problem Code: D23.10; Problem Code Type: ICD-10; CHENCHO avilez, [employer] 2 10:51:16 Screenin g for malignan t neoplasm of colon Completed 201907/27/2022 CHENCHO SANCHEZ null, [employer] 2 10:51:16 Screenin g mammogra phy Completed 201910/14/2020 Problem Code: Z12.31; Problem Code Type: ICD-10; CHENCHO SANCHEZ null, [employer]. 10:51:16 Influenz a vaccine needed 77161121558 06 Completed 202012/12/2021 Problem Code: Z23; Problem Code Type: ICD-10; Not Available [facility] 22:26:58 Cervical disc disorder with radiculo toney 486252045 Active 2020 Problem Code: M50.10; Problem Code Type: ICD-10; Not Available [facility] 22:26:55 Neck pain 94148300 Completed 202007/27/2022 CHENCHO SANCHEZ null, [employer] 2 10:51:16 Right lateral elbow tendinop athy 54586903995 9107 Completed 202007/27/2022 Problem Code: M77.11; Problem Code Type: ICD-10; CHENCHO SANCHEZ null, [employer] 2 10:51:16 Spinal stenosis in cervical region 14620872 Active 2020 Problem Code: M48.02; Problem Code Type: ICD-10; Not Available [facility] 2 22:26:55 Cough 28365735 Completed 202012/12/2021 Problem Code: R05; Problem Code Type: ICD-10; Not Available [facility] 2 22:26:56 Screenin g mammogra phy Completed 202007/27/2022 Problem Code: Z12.31; Problem Code Type: ICD-10; CHENCHO TREEOBIE null, [employer]. 2 10:51:16 Pain in left knee Completed 202011/04/2022 Problem Code: M25.562; Problem Code Type: ICD-10; CHENCHO TREEOBIE null, [employer]. 3 14:26:16 Chronic kidney disease stage 2 003086218 Active 2020 Problem Code: N18.2; Problem Code Type: ICD-10; Not Available [facility] 2 22:26:56 Pre-surg aram evaluati on Completed 202007/27/2022 CHENCHO TREEOBIE null, [employer] 2 10:51:16 Influenz a vaccine needed 46423018508 06 Completed 202012/12/2021 Problem Code: Z23; Problem Code Type: ICD-10; Not Available [facility] 2 22:26:58 Acute sinusiti s 21481172 Completed 202007/27/2022 Problem Code: J01.90; Problem Code Type: ICD-10; Chela Ferrell, CONTENT PRODUCTION SPECIALIST [address] [place] [address], [address] [facility] [employer] 5 16:17:04 Cough 61230014 Completed 202012/12/2021 Problem Code: R05; Problem Code Type: ICD-10; Not Available [facility] 2 22:26:56 Pyrexia of unknown origin 0209761 Completed 202007/27/2022 Problem Code: R50.9; Problem Code Type: ICD-10; CHENCHO TREEOBIE null, [employer] 2 10:51:16 Aftercar e Completed 202111/04/2022 CHENCHO TREEJEEVANR null, [employer]. 3 14:26:16 Acute serous otitis media of bilatera l ears 03323451323 21161 Completed 202111/04/2022 CHENCHO avilez, [employer] 3 14:26:16 Acute sinusiti s 92721239 Active 2024 Problem Code: J01.90; Problem Code Type: ICD-10; Chela Ferrell APRN [address] [place] [address], [address] , [employer] 5 16:17:04 Persiste nt cough 440646191 Active 2024 Chela Ferrell APRN [address] [place] [address], [address] , [employer] 5 08:26:23 Acute lower respirat ory tract infectio n 134277282 Active 2024 Chela Ferrell APRN [address] [place] [address], [address] , [employer] 5 09:00:35 Fatigue 81913023 Active 2024 Chela Ferrell APRN [address] [place] [address], [address] , [employer] 5 11:19:43 Paresthe linda 98421655 Active 2024 Chela Ferrell APRN [address] [place] [address], [address] , [employer] 5 11:20:36 Chest pain 17340508 Active 2024 Chela Ferrell APRN [address] [place] [address], [address] , [employer] 5 11:29:12 Snoring 43074215 Active 2024 Chela Ferrell APRN [address] [place] [address], [address] , [employer] 5 11:29:24 Coronary arterios clerosis 73771691 Active 2024 Chela Ferrell, CONTENT PRODUCTION SPECIALIST [address] [place], [address] , [employer] 11:18:40 Problem Notes None recorded. Procedures Surgical History Date Name Laterality Status Provider Name and Address Organization Details Recorded Time 09/04/20 25 catheterization of left heart completed Chela Ferrell APRN [address] [place], [address], [employer] 09/04/2025 11:30:52 04/20/20 22 Most Recent Mammogram completed CHENCHOJAN SANCHEZ [employer]. 07/27/2022 10:52:09 12/13/19 22 Total knee arthroplasty completed Not Available [facility] 05/26/2022 22:56:08 06/10/20 18 section completed Not Available [facility] 05/26/2022 22:56:08 06/10/20 18 ligation of bilateral fallopian tubes completed Not Available [facility] 05/26/2022 22:56:08 Imaging Results None recorded. Procedure Notes None recorded. Medical Equipment None Reported. Allergies Allergen ID Allergen Name Allergen Category Reaction Reaction Severity Criticality Documentation Date Start Date Code Code System Note Provider Name and Address Organization Details Recorded Time 62916 Product containin g penicilli n (product) medicatio n Not available Not available Not available 05/26/2022 15780 8001 SNOMED Aller gyCod e: ''; Aller gyNam e: 'Peni cilli ns'; Aller gyCon ceptT ype: ''; Not Available [facility] 22:57:18 Medications Name Sig Start Date Stop [...] and Address Organization Details Last Updated DateTime 170.18 cm 34.7 kg/m2 663122. 79 g 97.8 [degF] 62 /min 98 % 124/56 mm[Hg] CHENCHO SANCHEZ [employer], [email or web address] 11:02:10 Social History Question Answer Notes LastModified by Organizat ion Details LastModified Time Tobacco Smoking Status Never Smoker Margaret avilez, [employer] 03/10/2023 16:13:24 Do You Have An Advance Directive? No Information n ot available 07/27/2022 Is Your Home Air Conditioned? Yes Information not available 07/27/2022 Do You Wear A Helmet When Biking? No [email or web address] Information not available 04/20/2025 Are You Blind [...] Do You Have A Medical Power Of Developer Designer? No Information not available 07/27/2022 What Was [...] Do You Participate In Social Media? Yes [email or web address] Information not available 04/20/2025 Do You Use [...] anxious, or unable to sleep at night)? [id number] Information not available 04/20/2025 Do you have [...] Stones N Blood Diseases N Hyperthyroidism N Breast Cancer N Blood Transfusion N Emergency room visit since last appointm ent. N COPD N Depression N Dermatologic Disorders N Hypothyroidism N Lung Disease N Developmental or Behavioral Disorders N Defects or Inherited Disease N Breast Problem N Difficulty Swallowing N Anesthesia Complications N History of STI N Meniere's disease N Anxiety Disorder N Muscle, Joint, or Bone Problems N Autoimmune disease N Vision or Eye Problems N Arthritis Y Polyps N Infertility N Mental Disorder N Congenital Anomalies N Acid Reflux (GERD) N Cancer N Stroke N Neurologic/Epilepsy N Endometriosis N Bladder or Kidney Problems N High Cholesterol Y Liver Disease N Organ Transplant N Psychiatric/Mental Health Condition N Fibromyalgia N Headaches N Dialysis N Schizophrenia N Kidney Disease N Allergies/Hayfever N Heart [...] Y Pulmonary Embolism N Tourette Syndrome N Chronic Ear Infections N Pre-Eclampsia N Hypertension Y Chicken Pox N Autism Spectrum Disorder (ASD) N Osteoporosis N Thrombophilias N Gynecological History Statement/Question Response Date of Last Pap Smear Most Recent Mammogram 04/20/2022 Obstetrics History GPAL:G 0 P 0 0 0 0 Immunizations Vaccine Type Date Status Note Provider Nam e and Address Organization Details Recorded Time COVID-19, mRNA, LNP-S, PF, 30 mcg/0.3 mL dose 1 completed CHENCHO MYNEAR null, [employer] 07/27/2022 10:49:07 Influenza, split virus, quadrivalent, PF 1 completed CHENCHO MYNEAR null, [employer] 07/27/2022 10:49:07 Influenza, MDCK, quadrivalent, PF 1 completed CHENCHO MYNEAR null, [employer] 07/27/2022 10:49:07 Influenza, split virus, quadrivalent, preservative 9 completed CHENCHO MYNEAR null, [employer] 07/27/2022 10:49:07 Tdap 6 completed CHENCHO MYNEAR null, [employer] 07/27/2022 10:49:07 COVID-19, mRNA, LNP-S, PF, 30 mcg/0.3 mL dose 1 completed CHENCHO TREENEAR null, [employer] 07/27/2022 10:49:07 Influenza, split virus, quadrivalent, preservative 4 completed Margaret Urenachie null, [employer] 02/28/2024 14:35:23 TST-PPD intradermal 4 completed Margaret Southmayd null, [employer] 02/28/2024 14:35:23 Hep B, adult 4 completed Margaret Urenachie null, [employer] 02/28/2024 14:35:23 Influenza, split virus, trivalent, PF 5 completed Monica Espinoza null, [place] [employer] 09/12/2025 11:38:14 Past Encounters Encounter ID Performer Location Encounter Start Date Encounter Closed Date Diagnosis/Indication Diagnosis SNOMED-CT Code Diagnosis ICD10 Code Diagnosis IMO Codes Diagnosis Note [id number] Chela Ferrell [employer] [address] [phone] 08/13/2025 10:44:47 08/13/2025 11:47:04 Fatigue 86683214 R53.83 6450488 Paresthesia 24339296 R20 .2 85321 Diabetes m ellitus screening 276010354 Z13.1 78778 Body mass index 30+ - obesity 776885783 Z68.34 29863361 Healthy diet and exercise encouraged . Chest pain 02251510 R07. 9 74177688 Snoring 54708164 R06.83 45519 Mixed hyperlipidemia 267 486470 E78.2 Continue statin. 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 F41.8 Health Concerns Section Related Observation LastModified by Organization Detai ls LastModified Time None Recorded Concern Status LastModified by Organization Details LastModified Time None Recorded Payers Encounter Date Sequence Insurance Name Policy Number Policy Solano Covered Member ID Solano Member ID Guarantor Name 08/13/2025 1 [place] [facility] ([facility] Tasia Alexis [id number] Tasia Alexis Notes Date Note Type Note Provider Name and Address Organization Details Recorded Time 08/13/2025 text/html ROS as noted in the HPI Chief ComplaintFatigue for a few months despite sleeping, numbness in arms and hands, tingling in the bottoms of feet, two episodes of radiating chest pain in the past couple of months (once at rest in [employer] and once while carrying cat food)History of Present IllnessLisa Alexis presents with chronic fatigue lasting several [...] a couple of months ago while at [employer], described as awful pain that radiated into [...] lapse and needs to reschedule. Chela Ferrell, EMELY [address] [place], [phone], [facility] [employer] 08/13/2025 12:40:45 OBGyn Episode No OBEpisode recorded.
--- OUTSIDE RECORDS SUMMARY | 2025-09-18 07:57 | XMS_ITS | Continuity of Care Document ---
Author Organization [place] - [employer] [facility], [place], [facility]ated [facility] Address [address] [place] [address] Assessment Encounter Date Assessment Date Assessment LastModified by Organization Details LastModified Time 09/12/2025 09/12/2025 Tasia Alexis, a female patient [...] antiplatelet therapy, increasing fluid intake, reducing Dr. Ray consumption, administering influenza vaccine, and proceeding with scheduled echocardiogram to evaluate decreased ejection fraction. Not available 09/12/2025 12:51:18 Plan of Treatment Reminders Order Date Submit Date Provider Last Modified By Organization Details Last Modified Time Details Appointments None record ed. Lab None record ed. Referral None record ed. Procedures None record ed. Surgeries None record ed. Imaging None record ed. Medication Orders None record ed. Patient TargetsNo targets recorded. Patient InstructionsNo instructions recorded. Reason for Referral None Reported. Results Created Date Observation Date Name Description Value Unit Range Abnormal Flag Note LastModifiedBy Organization Detail LastModifiedTime 08/13/2008/14/2025 TSH+F REE T4 TSH 1.670 uIU/m L 0.450- 4.500 normal Not Available [facility] ([facility]) [address], [place], [address], 08/14/2025 07:09:04 08/13/2008/14/2025 TSH+F REE T4 T4,free(dire ct) 1.27 NG/dL 0.82-1 .77 normal Not Available [facility] ([facility]) [address] [place], [address], 08/14/2025 07:09:04 08/13/2008/14/2025 CBC WITH DIFFE RENTI AL/PL ATELE T WBC 3.6 x10e3 /uL 3.4-10 .8 normal Not Available [facility] ([facility]) [address] [place], [address], 08/14/2025 07:09:05 08/13/2008/14/2025 CBC WITH DIFFE RENTI AL/PL ATELE T RBC 4.85 x10e6 /uL 3.77-5 .28 normal Not Available [facility] ([facility]) [address] [place], [address], 08/14/2025 07:09:05 08/13/2008/14/2025 CBC WITH DIFFE RENTI AL/PL ATELE T hemoglobin 13.4 g/dL 11.1-1 5.9 normal Not Available [facility] ([facility]) [address] [place], [address], 08/14/2025 07:09:05 08/13/2008/14/2025 CBC WITH DIFFE RENTI AL/PL ATELE T hematocrit 42.5 % 34.0-4 6.6 normal Not Available [facility] ([facility]) [address] [place], [address], 08/14/2025 07:09:05 08/13/2008/14/2025 CBC WITH DIFFE RENTI AL/PL ATELE T MCV 88 fL 79-97 normal Not Available [facility] ([facility]) [address] [place], [address], 08/14/2025 07:09:05 08/13/2008/14/2025 CBC WITH DIFFE RENTI AL/PL ATELE T MCH 27.6 pg 26.6-3 3.0 normal Not Available [facility] ([facility]) [address], [place], [address], 08/14/2025 07:09:05 08/13/2008/14/2025 CBC WITH DIFFE RENTI AL/PL ATELE T MCHC 31.5 g/dL 31.5-3 5.7 normal Not Available [facility] ([facility]) [address], [place], [address], 08/14/2025 07:09:05 08/13/2008/14/2025 CBC WITH DIFFE RENTI AL/PL ATELE T RDW 11.6 % 11.7-1 5.4 below low normal Not Available [facility] ([facility]) [address], [place], [address], 08/14/2025 07:09:05 08/13/2008/14/2025 CBC WITH DIFFE RENTI AL/PL ATELE T platelets 232 x10e3 /uL 150-45 0 normal Not Available [facility] ([facility]) [address], [place], [address], 08/14/2025 07:09:05 08/13/2008/14/2025 CBC WITH DIFFE RENTI AL/PL ATELE T neutrophils 52 % not estab. normal Not Available [facility] ([facility]) [address], [place], [address], 08/14/2025 07:09:05 08/13/2008/14/2025 CBC WITH DIFFE RENTI AL/PL ATELE T lymphs 33 % not estab. normal Not Available [facility] ([facility]) [address] [place], [address], 08/14/2025 07:09:05 08/13/2008/14/2025 CBC WITH DIFFE RENTI AL/PL ATELE T monocytes 9 % not estab. normal Not Available [facility] ([facility]) [address], [place], [address], 08/14/2025 07:09:05 08/13/2008/14/2025 CBC WITH DIFFE RENTI AL/PL ATELE T eos 5 % not estab. normal Not Available [facility] ([facility]) [address], [place], [address], 08/14/2025 07:09:05 08/13/2008/14/2025 CBC WITH DIFFE RENTI AL/PL ATELE T basos 1 % not estab. normal Not Available [facility] ([facility]) [address], [place], [address], 08/14/2025 07:09:05 08/13/2008/14/2025 CBC WITH DIFFE RENTI AL/PL ATELE T immature cells ARMHOLE SEWER Not Available [facility] ([facility]) [address] [place], [address], 08/14/2025 07:09:05 08/13/2008/14/2025 CBC WITH DIFFE RENTI AL/PL ATELE T neutrophils (absolute) 1.8 x10e3 /uL 1.4-7. 0 normal Not Available [facility] ([facility]) [address], [place], [address], 08/14/2025 07:09:05 08/13/2008/14/2025 CBC WITH DIFFE RENTI AL/PL ATELE T lymphs (absolute) 1.2 x10e3 /uL 0.7-3. 1 normal Not Available [facility] ([facility]) [address] [place], [address], 08/14/2025 07:09:05 11/24/20 25 08/14/2025 CBC WITH DIFFE RENTI AL/PL ATELE T monocytes(ab solute) 0.3 x10e3 /uL 0.1-0. 9 normal Not Available [facility] ([facility]) [address] [place], [address], 08/14/2025 07:09:05 08/13/2008/14/2025 CBC WITH DIFFE RENTI AL/PL ATELE T eos (absolute) 0.2 x10e3 /uL 0.0-0. 4 normal Not Available [facility] ([facility]) [address], [place], [address], 08/14/2025 07:09:05 08/13/2008/14/2025 CBC WITH DIFFE RENTI AL/PL ATELE T baso (absolute) 0.0 x10e3 /uL 0.0-0. 2 normal Not Available [facility] ([facility]) [address] [place], [address], 08/14/2025 07:09:05 08/13/2008/14/2025 CBC WITH DIFFE RENTI AL/PL ATELE T immature granulocytes 0 % not estab. Not Available [facility] ([facility]) [address] [place], [address], 08/14/2025 07:09:05 08/13/2008/14/2025 CBC WITH DIFFE RENTI AL/PL ATELE T immature grans (abs) 0.0 x10e3 /uL 0.0-0. 1 Not Available [facility] ([facility]) [address] [place], [address], 08/14/2025 07:09:05 08/13/2008/14/2025 CBC WITH DIFFE RENTI AL/PL ATELE T NRBC ARMHOLE SEWER Not Available [facility] ([facility]) [address] [place], [address], 08/14/2025 07:09:05 08/13/2008/14/2025 CBC WITH DIFFE WES AL/PL CRAIGLE T hematology comments: ARMHOLE SEWER Not Available [facility] ([facility]) [address], [place], [address], 08/14/2025 07:09:05 08/13/2008/14/2025 COMP. METAB OLIC PANEL (14) glucose 88 mg/dL 70-99 normal Not Available [facility] ([facility]) [address], [place], [address], 08/14/2025 07:09:05 08/13/2008/14/2025 COMP. METAB OLIC PANEL (14) BUN 19 mg/dL 8-27 normal Not Available [facility] ([facility]) [address], [place], [address], 08/14/2025 07:09:05 08/13/2008/14/2025 COMP. METAB OLIC PANEL (14) creatinine 1.08 mg/dL 0.57-1 .00 above high normal Not Available [facility] ([facility]) [address] [place], [address], 08/14/2025 07:09:05 08/13/2008/14/2025 COMP. METAB OLIC PANEL (14) eGFR 59 mL/mi n/1.7 3 >59 below low normal Not Available [facility] ([facility]) [address] [place], [address], 08/14/2025 07:09:05 08/13/2008/14/2025 COMP. METAB OLIC PANEL (14) BUN/creatini ne ratio 18 12-28 normal Not Available [facility] ([facility]) [address] [place], [address], 08/14/2025 07:09:05 08/13/20 25 08/14/2025 COMP. METAB OLIC PANEL (14) sodium 138 mmol/ L 134-14 4 normal Not Available [facility] ([facility]) [address] [place], [address], 08/14/2025 07:09:05 08/13/2008/14/2025 COMP. METAB OLIC PANEL (14) potassium 4.5 mmol/ L 3.5-5. 2 normal Not Available [facility] ([facility]) [address] [place], [address], 08/14/2025 07:09:05 08/13/2008/14/2025 COMP. METAB OLIC PANEL (14) chloride 99 mmol/ L 96-106 normal Not Available [facility] ([facility]) [address] [place], [address], 08/14/2025 07:09:05 08/13/2008/14/2025 COMP. METAB OLIC PANEL (14) carbon dioxide, total 25 mmol/ L 20-29 normal Not Available [facility] ([facility]) [address] [place], [address], 08/14/2025 07:09:05 08/13/2008/14/2025 COMP. METAB OLIC PANEL (14) calcium 9.4 mg/dL 8.7-10 .3 normal Not Available [facility] ([facility]) [address] [place], [address], 08/14/2025 07:09:05 08/13/2008/14/2025 COMP. METAB OLIC PANEL (14) protein, total 6.6 g/dL 6.0-8. 5 normal Not Available [facility] ([facility]) [address] [place], [address], 08/14/2025 07:09:05 08/13/2008/14/2025 COMP. METAB OLIC PANEL (14) albumin 4.3 g/dL 3.8-4. 9 normal Not Available [facility] ([facility]) [address] [place], [address], 08/14/2025 07:09:05 08/13/2008/14/2025 COMP. METAB OLIC PANEL (14) globulin, total 2.3 g/dL 1.5-4. 5 Not Available [facility] ([facility]) [address] [place], [address], 08/14/2025 07:09:05 08/13/2008/14/2025 COMP. METAB OLIC PANEL (14) bilirubin, total 0.5 mg/dL 0.0-1. 2 normal Not Available [facility] ([facility]) [address] [place], [address], 08/14/2025 07:09:05 08/13/2008/14/2025 COMP. METAB OLIC PANEL (14) alkaline phosphatase 115 IU/L 49-135 normal Not Available [facility] ([facility]) [address], [place], [address], 08/14/2025 07:09:05 08/13/2008/14/2025 COMP. METAB OLIC PANEL (14) AST (SGOT) 17 IU/L 0-40 normal Not Available [facility] ([facility]) [address] [place], [address], 08/14/2025 07:09:05 08/13/2008/14/2025 COMP. METAB OLIC PANEL (14) ALT (SGPT) 14 IU/L 0-32 normal Not Available [facility] ([facility]) [address] [place], [address], 08/14/2025 07:09:05 08/13/2008/14/2025 LIPID PANEL cholesterol, total 212 mg/dL 100-19 9 above high normal Not Available [facility] ([facility]) [address] [place], [address], 08/14/2025 07:09:06 08/13/2008/14/2025 LIPID PANEL triglyceride s 91 mg/dL 0-149 normal Not Available [facility] ([facility]) [address] [place], [address], 08/14/2025 07:09:06 08/13/2008/14/2025 LIPID PANEL HDL cholesterol 61 mg/dL >39 normal Not Available [facility] ([facility]) [address] [place], [address], 08/14/2025 07:09:06 08/13/2008/14/2025 LIPID PANEL VLDL cholesterol sydney 16 mg/dL 5-40 Not Available [facility] ([facility]) [address] [place], [address], 08/14/2025 07:09:06 08/13/2008/14/2025 LIPID PANEL LDL chol calc ([facility]) 135 mg/dL 0-99 above high normal Not Available [facility] ([facility]) [address] [place], [address], 08/14/2025 07:09:06 08/13/2008/14/2025 LIPID PANEL LDL calc comment: ARMHOLE SEWER Not Available [facility] ([facility]) [address] [place], [address], 08/14/2025 07:09:06 08/13/2008/14/2025 VITAM IN B12 AND FOLAT E vitamin B12 379 pg/mL 232-12 45 normal Not Available [facility] ([facility]) [address] [place], [address], 08/14/2025 07:09:06 08/13/2008/14/2025 VITAM IN B12 AND FOLAT E folate (folic acid), serum 3.9 NG/mL >3.0 normal A serum folat e quoc ntrat ion of less than 3.1 ng/mL is consi dered to repre sent clini sy[place] defic iency . Not Available [facility] ([facility]) [address], [place], [address], 08/14/2025 07:09:06 08/13/2008/14/2025 HEMOG LOBIN A1C hemoglobin A1C 5.5 % 4.8-5. 6 normal Predi abete s: 5.7 - 6.4 Diabe nelson: >6.4 Glyce kristen contr ol for adult s with diabe nelson: <7.0 Not Available [facility] ([facility]) [address], [place], [address], 08/14/2025 07:09:07 08/13/2008/14/2025 VITAM IN D, 25-HY DROXY vitamin D, 25-hydroxy 31.6 NG/mL 30.0-1 00.0 Vitam in D defic iency has been defin ed by the Insti tute of Medic ine and an Endoc rine Socie ty pract ice guide line as a level of serum 25-OH vitam in D less than 20 ng/mL (1,2) . The Endoc rine Socie ty went on to furth er defin e vitam in D insuf ficie ncy as a level betwe en 21 and 29 ng/mL (2). 1. IOM (Inst itute of Medic ine). 2009. Dieta ry refer ence enoi es for calci um and D. Vel de la garza [place]: The [facility] Press . 2. Salvador garibay MF, Yi duckworth [place], Alfreda off-F errar i RAMIREZ, et al. Evalu ation , treat ment, and preve ntion of vitam in D defic iency : an Endoc rine Socie ty clini [place] pract ice guide line. JCEM. 2010; 96(7) :1911 -30. Not Available [facility] ([facility]) [address], [place], [address], 08/14/2025 07:09:07 08/13/2008/14/2025 MAGNE SIUM magnesium 2.3 mg/dL 1.6-2. 3 normal Not Available [facility] ([facility]) [address], [place], [address], 08/14/2025 07:09:07 Result Notes None recorded. Problems Name Problem SNOMED Code Status Onset Date Resolution Date Notes Provider Name and Address Organization Details Recorded Time Mixed hyperlip idemia 880266266 Active 2017 Problem Code: E78.2; Problem Code Type: ICD-10; Not Available [facility] 22:26:54 Hyperten sive disorder 17487905 Active 2017 Problem Code: I10; Problem Code Type: ICD-10; Not Available [facility] 22:26:54 Polyp of colon 91621601 Completed 201707/27/2022 Problem Code: K63.5; Problem Code Type: ICD-10; CHENCHO avilez [employer]. 10:51:16 Idiopath ic osteoart hritis 062836005 Completed 201709/24/2018 Problem Code: M17.0; Problem Code Type: ICD-10; Not Available [facility] 22:26:55 Body mass index 30+ - obesity 389751787 Completed 201710/14/2020 Problem Code: Z68.33; Problem Code Type: ICD-10; Not Available [facility] 22:26:59 Osteoart hritis of knee 518110534 Completed 201709/24/2018 Not Available [facility] 22:27:01 Left carotid artery occlusio n 12147106972 9105 Completed 201708/22/2018 Not Available [facility] 22:26:54 Precordi al pain 30915193 Completed 201708/22/2018 Problem Code: R07.2; Problem Code Type: ICD-10; Not Available [facility] 22:26:56 Nausea 369790448 Completed 201707/07/2018 Problem Code: R11.0; Problem Code Type: ICD-10; Not Available [facility] 2 22:26:56 Carotid artery occlusio n 301530382 Completed 201708/22/2018 Problem Code: 433.10; Problem Code Type: ICD-9; Not Available [facility] 2 22:27:00 Vitamin D deficien cy 87256217 Active 2018 Problem Code: E55.9; Problem Code Type: ICD-10; Not Available [facility] 2 22:26:54 Pain in left foot 86092344490 9107 Completed 201804/12/2019 Problem Code: M79.672; Problem Code Type: ICD-10; Chela Ferrell, [employer] [address] [place] [address], [address] , [employer] 5 17:06:29 Pain in limb 58664834 Completed 201807/27/2022 Problem Code: 729.5; Problem Code Type: ICD-9; CHENCHO TREEJEEVANR null, [employer] 10:51:16 Screenin g mammogra phy Completed 201811/23/2018 Problem Code: V76.12; Problem Code Type: ICD-9; CHENCHO TREENEAR null, [employer] 10:51:16 Strain of left Achilles tendon 42049584116 252946 Completed 201804/12/2019 Not Available [facility] 2 22:26:57 Sprain of distal tibiofib ular ligament 50900893 Completed 201807/27/2022 Problem Code: S93.432A ; Problem Code Type: ICD-10; CHENCHO TREEJEEVANR null, [employer] 2 10:51:16 Generali zed anxiety disorder 34800081 Active 2018 Problem Code: F41.1; Problem Code Type: ICD-10; Not Available [facility] 2 22:26:56 Injury of Achilles tendon 439835248 Completed 201807/27/2022 Problem Code: S86.001S ; Problem Code Type: ICD-10; CHENCHO avilez, [employer] 2 10:51:16 General examinat ion of patient Completed 201907/27/2022 CHENCHO avilez, [employer] 2 10:51:16 Body mass index 30+ - obesity 529326310 Active 2019 Problem Code: Z68.32; Problem Code Type: ICD-10; Not Available [facility] 22:26:59 Benign neoplasm of skin of eyelid 99094543 Completed 201907/27/2022 Problem Code: D23.10; Problem Code Type: ICD-10; CHENCHO avilez, [employer] 2 10:51:16 Screenin g for malignan t neoplasm of colon Completed 201907/27/2022 CHENCHO avilez, [employer] 2 10:51:16 Screenin g mammogra phy Completed 201910/14/2020 Problem Code: Z12.31; Problem Code Type: ICD-10; CHENCHO avilez, [employer] 2 10:51:16 Influenz a vaccine needed 76742856174 06 Completed 202012/12/2021 Problem Code: Z23; Problem Code Type: ICD-10; Not Available [facility] 2 22:26:58 Cervical disc disorder with radiculo toney 905189971 Active 2020 Problem Code: M50.10; Problem Code Type: ICD-10; Not Available [facility] 2 22:26:55 Neck pain 87322581 Completed 202007/27/2022 CHENCHO SANCHEZ null, [employer] 2 10:51:16 Right lateral elbow tendinop athy 41146774005 9107 Completed 202007/27/2022 Problem Code: M77.11; Problem Code Type: ICD-10; CHENCHO avilez, [employer] 2 10:51:16 Spinal stenosis in cervical region 01330160 Active 2020 Problem Code: M48.02; Problem Code Type: ICD-10; Not Available [facility] 2 22:26:55 Cough 80059398 Completed 202012/12/2021 Problem Code: R05; Problem Code Type: ICD-10; Not Available [facility] 2 22:26:56 Screenin g mammogra phy Completed 202007/27/2022 Problem Code: Z12.31; Problem Code Type: ICD-10; CHENCHO LEAVITTJEEVANKarla null, [employer] 2 10:51:16 Pain in left knee Completed 202011/04/2022 Problem Code: M25.562; Problem Code Type: ICD-10; CHENCHO SANCHEZ null, [employer] 3 14:26:16 Chronic kidney disease stage 2 090285053 Active 2020 Problem Code: N18.2; Problem Code Type: ICD-10; Not Available [facility] 2 22:26:56 Pre-surg aram evaluati on Completed 202007/27/2022 CHENCHO avilez, [employer] 2 10:51:16 Influenz a vaccine needed 72066345992 06 Completed 202012/12/2021 Problem Code: Z23; Problem Code Type: ICD-10; Not Available [facility] 2 22:26:58 Acute sinusiti s 50762580 Completed 202007/27/2022 Problem Code: J01.90; Problem Code Type: ICD-10; Chela Ferrell, EMELY [address] [place] [address], [phone] , [employer] 5 16:17:04 Cough 40995216 Completed 202012/12/2021 Problem Code: R05; Problem Code Type: ICD-10; Not Available [facility] 2 22:26:56 Pyrexia of unknown origin 9739966 Completed 202007/27/2022 Problem Code: R50.9; Problem Code Type: ICD-10; CHENCHO LEAVITTNEAR null, [employer] 2 10:51:16 Aftercar e Completed 202111/04/2022 CHENCHO MYNEAR null, [employer] 3 14:26:16 Acute serous otitis media of bilatera l ears 04252654556 46699 Completed 202111/04/2022 CHENCHO LEAVITTNEAR null, [employer] 3 14:26:16 Acute sinusiti s 17074312 Active 2024 Problem Code: J01.90; Problem Code Type: ICD-10; Chela Ferrell APRN [address] [place] [address], [address] , [employer] 5 16:17:04 Persiste nt cough 769050517 Active 2024 Chela Ferrell APRN [address] [place] [address], [address] , [employer] 5 08:26:23 Acute lower respirat ory tract infectio n 015635233 Active 2024 Chela Ferrell APRN [address] [place], [address] , [place] [employer] 5 09:00:35 Fatigue 79931233 Active 2024 Chela Ferrell APRN [address] [place] [address], [address] , [employer] 5 11:19:43 Paresthe linda 82937347 Active 2024 Chela Ferrell APRN [address] [place] [address], [address] , [employer] 5 11:20:36 Chest pain 46759307 Active 2024 Chela Ferrell APRN [address] [place] [address], [address] , [employer] 5 11:29:12 Snoring 21676975 Active 2024 Chela PortilloerHARSHALN [address] [place] [address], [address] , [employer] 5 11:29:24 Coronary arterios clerosis 30491287 Active 2024 Chela Ferrell APRN [address] [place] [address], [address] , [employer] 11:18:40 Problem Notes None recorded. Procedures Surgical History Date Name Laterality Status Provider Name and Address Organization Details Recorded Time 09/04/20 25 catheterization of left heart completed Chela Ferrell APRN [address] [place] [address], [phone], [employer] 09/04/2025 11:30:52 04/20/20 22 Most Recent Mammogram completed CHENCHO SANCHEZ [employer] 07/27/2022 10:52:09 12/13/19 22 Total knee arthroplasty completed Not Available [facility] 05/26/2022 22:56:08 06/10/20 18 section completed Not Available [facility] 05/26/2022 22:56:08 06/10/20 18 ligation of bilateral fallopian tubes completed Not Available [facility] 05/26/2022 22:56:08 Imaging Results None recorded. Procedure Notes None recorded. Medical Equipment None Reported. Allergies Allergen ID Allergen Name Allergen Category Reaction Reaction Severity Criticality Documentation Date Start Date Code Code System Note Provider Name and Address Organization Details Recorded Time 03717 Product containin g penicilli n (product) medicatio n Not available Not available Not available 05/26/2022 04911 8775 SNOMED Aller gyCod e: ''; Aller gyNam e: 'Peni cilli ns'; Michael Nathalie Capri ype: ''; Not Available [facility] 22:57:18 Medications Name Sig Start Date [...] Updated DateTime 5 170.18 cm 34.3 kg/m2 83461.4 3 g 58 /min 98 % 89/55 mm[Hg] Monica Espinoza [employer] 5 11:04:07 Social History Question Answer Notes LastModified by Organizat ion Details LastModified Time Tobacco Smoking Status Never Smoker Margaret avilez [employer] 03/10/2023 16:13:24 Do You Have An Advance Directive? No Information n ot available 07/27/2022 Is Your Home Air Conditioned? Yes Information not available 07/27/2022 Do You Wear A Helmet When Biking? No [email or web address] Information not available 04/20/2025 Are You Blind [...] Do You Have A Medical Power Of Digital Marketing Assistant? No Information not available 07/27/2022 What Was [...] Do You Participate In Social Media? Yes Information not available 04/20/2025 Do You Use [...] anxious, or unable to sleep at night)? [id number] [email or web address] Information not available 04/20/2025 Do you have [...] 30 mcg/0.3 mL dose 1 completed CHENCHO avilez [facility] [employer] 07/27/2022 10:49:07 Influenza, split virus, quadrivalent, PF 1 completed CHENCHO MYNEAR null, [employer] 07/27/2022 10:49:07 Influenza, MDCK, quadrivalent, PF 1 completed CHENCHO MYNEAR null, [employer] 07/27/2022 10:49:07 Influenza, split virus, quadrivalent, preservative 9 completed CHENCHO MYNEAR null, [employer] 07/27/2022 10:49:07 Tdap 6 completed CHENCHO MYNEAR null, [employer] 07/27/2022 10:49:07 COVID-19, mRNA, LNP-S, PF, 30 mcg/0.3 mL dose 1 completed CHENCHO MYNEAR null, [employer] 07/27/2022 10:49:07 Influenza, split virus, quadrivalent, preservative 4 completed Margaret Aguila null, [employer] 02/28/2024 14:35:23 TST-PPD intradermal 4 completed Margaret Mckenna null, [employer] 02/28/2024 14:35:23 Hep B, adult 4 completed Margaret Mckenna null, [employer] 02/28/2024 14:35:23 Influenza, split virus, trivalent, PF 5 completed Monica Espinoza null, [employer] 09/12/2025 11:38:14 Past Encounters Encounter ID Performer Location Encounter Start Date Encounter Closed Date Diagnosis/Indication Diagnosis SNOMED-CT Code Diagnosis ICD10 Code Diagnosis IMO Codes Diagnosis Note [id number] Chela Ferrell APRN [address] [address] 08/13/2025 10:44:47 08/13/2025 11:47:04 Fatigue 97706960 R53.83 [id number] Paresthesia 29264920 R20 .2 70138 Diabetes m ellitus screening 694970191 Z13.1 39762 Body mass index 30+ - obesity 429316120 Z68.34 [id number] Healthy diet and exercise encouraged . Chest pain 21872296 R07. 9 [id number] Snoring 19838748 R06.83 83597 Mixed hyperlipidemia 267 833339 E78.2 Continue statin. Essential hypertension 08170342 I10 Mixed anxi ety and depressive disorder 871608197 F41.8 [id number] Chela Ferrell[address] [address] 09/12/2025 10:53:31 09/12/2025 11:37:44 Coronary arteriosclerosis 24024943 I25.10 6824336 Influenza vaccination given [id number] 9109 Z23 [id number] Health Concerns Section Related Observation LastModified by Organization Detai ls LastModified Time None Recorded Concern Status LastModified by Organization Details LastModified Time None Recorded Payers Encounter Date Sequence Insurance Name Policy Number Policy Solano Covered Member ID Solano Member ID Guarantor Name 09/12/2025 1 ANNELISE HAROR [facility] [place] [place] Tasia Alexis [id number] Tasia Alexis Notes Date Note Type Note Provider Name and Address Organization Details Recorded Time 09/12/2025 text/html ROS as noted in the HPI [...] for a unit to become available. Chela Ferrell APRN [address] [place] [address], [place], [address], [facility] 09/12/2025 12:51:35 OBGyn Episode No OBEpisode recorded.
--- NOTE | 2025-09-18 08:00 | CA_ITS ---
APPROVED REPORT EXAM: Comprehensive 2D, Doppler, and color-flow Echocardiogram Al[employer]inder: Alexa Urbina RVT Ht: 5 ft 7 in Wt: 219lbs BSA: 2.10 BP: 124/65 mmHg Indications: CORONARY ARTERY DISEASE 2D Dimensions LA Volume 31.70 mL LA Volume Index 15.10 mL/m2 (M/F) 16-34 M-Mode Dimensions RVDd 2.89 cm (0.9-2.6) LA Diam 3.30 cm (1.9-4.0) LVDd 4.52 cm (3.5-5.7) LVDs 3.00 cm (3.5-5.7) IVSd 0.72 cm (0.6-1.1) PWd 0.87 cm (0.6-1.1) EF (Teich) 62.50% FS 33.60% EDV (Teich) 93.40 mL TAPSE 2.60 (<1.7) ESV (Teich) 35.00 mL LV Diastology E Decel Time 243 (160-240 msec) E/A Ratio 1.2 Aortic Valve HARPREET Index 0.96 cm2/m2 AoV Peak John. 186.0 (50-130 cm/s) AO Peak GR. 13.90 mmHg AO Mean GR. 6.80 (<5 mmHg) AO VTI 39.5 (18-25 cm) HARPREET (VTI) 2.07 (2.5-4.5 cm2) Mitral Valve MV E Max John. 88.0 (40-130 cm/s) MV A Velocity 76.0 (40-130 cm/s) E/A Ratio 1.15 MV PHT 71.0 ms Pulmonary Valve PV Peak Velocity 96.0 (50-150 cm/s) Left Ventricle The left ventricle is normal size. Left ventricular systolic function is low-normal. There is normal left ventricular wall thickness. There is normal LV segmental wall motion. The left ventricular diastolic function is normal. LVEF is 50% Right Ventricle The right ventricle is normal size. The right ventricular systolic function is normal. Atria The left atrium size is normal. The right atrium size is normal. There is no color Doppler evidence of interatrial shunt. Aortic Valve The aortic valve is mildly thickened. There is no hemodynamically significant aortic valvular stenosis. Trace aortic regurgitation is present. Mitral Valve The mitral valve is normal in structure. No evidence of mitral valve stenosis. Trace mitral regurgitation is present. Tricuspid Valve The tricuspid valve leaflets are thin and pliable. Trace tricuspid regurgitation. There is insufficient TR jet to estimate RVSP. Pulmonic Valve The pulmonary valve is grossly normal in structure. Trace pulmonic valve regurgitation is present. Great Vessels The aortic root is normal in size. IVC is normal in size and collapses >50% with inspiration. Pericardium There is no pericardial effusion. Other Information Study Quality: Technically Difficult Conclusion Low-normal LV systolic function (LVEF 50%). Normal RV size and function. No significant valvular stenosis or regurgitation. Electronically signed by : Nancy Ruff MD 09/24/2025 01:20:24
[2025-09-18 09:45] LABS: Albumin Level 4.3 g/dl (3.5-5.0)
[2025-09-18 09:48] LABS: Alanine Aminotransferase 19 U/L (12-78); Alkaline Phosphatase 96 U/L (38-126); Aspartate Amino Transferase 25 U/L (14-36); Bilirubin,Direct 0.0 mg/dl (0.0-0.4); Bilirubin,Indirect 0.8 mg/dL (0.0-0.9); Bilirubin,Total 0.8 mg/dl (0.2-1.3); Bilirubin,Unconjugated 0.8 mg/dL (0.0-1.1); Cholesterol 209 mg/dl (140-200); Total Protein,Serum 6.7 g/dl (6.3-8.2); Triglycerides 78 mg/dl (30-150)
[2025-09-18 09:49] LABS: HDL Cholesterol 69 mg/dl (40-60)
== END 2025-09-18 23:59 | disposition home or self-care (01) ==
PROVIDERS: PCP Nurse Practitioner Family; Visit Provider Nurse Practitioner
DX: I25.10 Atherosclerotic heart disease of native coronary artery without angina pectoris (principal); Z82.49 Family history of ischemic heart disease and other diseases of the circulatory system
CPT/HCPCS: 36415; 80061; 80076; 93306